=== PATIENT | female | born 1985 | race African-American/Black ===

== ENCOUNTER 2021-09-07 14:25 | Outpatient (CLI) | payer OTHER, SELFPAY ==
--- NOTE | 2021-09-07 | ECHO_ITS ---
Patient Info Name: Kavon Mauricio Age: 36 years : 1985 Gender: Female Ht: 65 in Wt: 300 lbs BSA: 2.58 m2 HR: 83 bpm BP: 161 / 108 mmHg Heart Rhythm: Sinus Rhythm Exam Date: 09/07/2021 2:58 PM Exam Location: [facility] Patient Status: Outpatient Admit Date: 09/07/2021 Staff Ordering Physician: Ovidio, Corrie NEGRETE Apprentice Pattern Maker: Abel Ornelas RDCS, RT Attending Provider: Ovidio, Corrie NEGRETE Referring Physician: Ovidio CAPPS; Exam Type: CA echo doppler color flow Study Info Indications R06.00 - Dyspnea, unspecified Complete two-dimensional, color flow and Doppler transthoracic echocardiogram is performed. Summary 1. Complete two-dimensional, color flow and Doppler transthoracic echocardiogram is performed. 2. Technically difficult exam presumably because of patient obesity. 3. Grossly normal appearing left and right ventricular systolic function. 4. Trivial amount of tricuspid valve regurgitation. Left Ventricle Left ventricular chamber dimension is normal. Left ventricular systolic function is normal, estimated at 60-65%. The left ventricular diastolic function is normal. Right Ventricle Right ventricular chamber dimension is normal. Left Atria Left atrial chamber dimension is normal. Right Atria Right atrial chamber dimension is not well visualized. Aortic Valve The aortic valve is normal. Pulmonic Valve The pulmonic valve is not well visualized. Mitral Valve The mitral valve has normal leaflets. Tricuspid Valve The tricuspid valve leaflets are not well visualized. There is trace tricuspid valve regurgitation. Pericardium/Pleural The pericardium appears normal. Aorta The aortic root size at the sinus of Valsalva is not well visualized. Left Ventricular Outflow Tract Name Value Normal LVOT 2D LVOT Diameter 2.0 cm LVOT Doppler LVOT Peak Gradient 2 mmHg LVOT Mean Gradient 1 mmHg LVOT VTI 16 cm LVOT VTI/AV VTI Ratio 0.8 LVOT Stroke Volume 50 ml LVOT CO 4.1 l/min LVOT CI 1.6 l/min/m2 Mitral Valve Name Value Normal MV Doppler MV Decel Stutsman 312 cm/s2 MV PHT 73 ms MV Area (PHT) 3.0 cm2 4.0-5.0 MV Diastolic Function MV E Peak Velocity 79 cm/s MV A Peak Velocity 54 cm/s MV E/A 1.5 MV Decel Time 252 ms MV Annular TDI
== END 2021-09-07 14:26 | disposition home or self-care (01) ==
LOC: ANHCARD 14:30
PROVIDERS: Visit Provider Physician Assistant
DX: R06.09 Other forms of dyspnea (principal)
CPT/HCPCS: 93306

== ENCOUNTER 2021-10-09 11:23 | Outpatient (CLI) | payer OTHER, SELFPAY ==
--- NOTE | ~2021-10-09 | XR_ITS ---
EXAMINATION: XR chest 2V DATE: 10/09/2021 11:43 INDICATION: Chronic cough TECHNIQUE: PA and lateral views of the chest were obtained. COMPARISON: None FINDINGS: The lungs are clear with no focal airspace opacities, pulmonary edema, pleural effusion or pneumothor ax. The cardiomediastinal silhouette is normal. Chronic appearing mild anterior wedging of a midthora cic and lower thoracic vertebral bodies. IMPRESSION: 1. No acute cardiopulmonary disease. Reviewed, dictated and finalized at location B. 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
== END 2021-10-09 11:24 | disposition home or self-care (01) ==
LOC: ANHIMG 11:26
PROVIDERS: PCP Physician Assistant; Visit Provider Physician Assistant
DX: R05.3 Chronic cough (principal)
CPT/HCPCS: 71046

== ENCOUNTER 2023-03-14 15:16 | Outpatient (CLI) | payer OTHER, SELFPAY ==
--- NOTE | ~2023-03-14 | US_ITS ---
EXAMINATION: US pelvic complete DATE: 03/14/2023 17:08 INDICATION: Irregular cycles Comparison:No prior studies for comparison. TECHNIQUE: Multiple transabdominal sonographic images of the pelvis performed. FINDINGS: The uterus measures 11.2 x 6.1 x 4.4 cm. The endometrial complex measures 2.4 mm. The right ovary is not visualized. Left ovary is unremarkable measuring 2.9 x 2.1 x 1.6 cm. There is no free fluid in the pelvis. There are no abnormal masses seen on either side. IMPRESSION: 1. Unremarkable pelvic ultrasound. Reviewed, dictated and finalized at location L.
== END 2023-03-14 15:17 | disposition home or self-care (01) ==
PROVIDERS: Visit Provider Family Medicine
DX: N92.6 Irregular menstruation, unspecified (principal)
CPT/HCPCS: 76856

== ENCOUNTER 2023-06-29 10:41 | Emergency (ER) | payer OTHER, SELFPAY ==
[2023-06-29] VITALS (11 sets, daily range): BP systolic 120–151; BP diastolic 58–82; PULSE 68–86; RESP 16–30; TEMP 36.8; O2SAT 96–100
--- NOTE | ~2023-06-29 | CT_ITS ---
EXAMINATION: CT abdomen pelvis w con DATE: 06/29/2023 13:20 INDICATION: Right-sided abdominal pain TECHNIQUE: Computed tomography (CT) of the abdomen and pelvis was performed with 100 cc Omnipaque 350 intravenous contrast. The dose-length product was 1517.71 mGy-cm. Automated exposure control and ite rative reconstruction technique were employed. COMPARISON: None. FINDINGS: Lung bases are unremarkable. No significant pleural or pericardial effusion. Heart size nor mal. The spleen, pancreas, adrenal glands and kidneys are unremarkable. Gallbladder is present. Nonobstruc tive bowel gas pattern. Fatty infiltration of the liver. Small fat-containing umbilical hernia. Gallb ladder is present. No free air or free fluid. No significant vascular abnormality. No lymphadenopathy . No abnormal pelvic masses or fluid collections. Mild lumbar spondylosis. IMPRESSION: 1. No acute abdominal abnormality identified. Reviewed, dictated and finalized at location B.
[2023-06-29 11:11] LABS: Basophils Absolute Auto 0.1 K/mm3 (0.0-0.1); Basophils Percent Auto 0.3 % (0.2-1.2); Eosinophils Absolute Auto 0.2 K/mm3 (0-0.3); Eosinophils Percent Auto 1.3 % (0-4.4); Hematocrit 36.4 % (37.0-47.0); Hemoglobin 11.1 g/dL (12.0-15.0); Immature Granulocyte Absolute 0.06 K/mm3 (0.00-0.031); Immature Granulocyte Percent A 0.4 % (0-0.5); Lymphocytes Percent Auto 26.4 % (18.3-44.2); Mean Corpuscular HGB Conc 30.5 g/dl (32-36); Mean Corpuscular Hemoglobin 24.4 pg (26-34); Mean Platelet Volume 9.9 fl (7.4-10.4); Monocytes Absolute Auto 0.5 K/mm3 (0.1-0.6); Monocytes Percent Auto 3.7 % (2.6-8.5); Neutrophils Absolute Auto 10.1 K/mm3 (1.3-6.7); Neutrophils Percent Auto 67.9 % (45.5-73.1); Platelet Count Result 325 k/mm3 (150-375); Red Blood Count 4.55 M/mm3 (4.2-5.4); Red Cell Distribution Width 15.8 % (11.5-14.5); White Blood Count 14.8 K/mm3 (4.5-10.0)
[2023-06-29 11:19] LABS: Alanine Aminotransferase 26 U/L (6-35); Albumin Level 4.1 g/dL (3.5-5.1); Alkaline Phosphatase 93 U/L (38-126); Anion Gap 8 mmol/L (8-16); Aspartate Amino Transferase 28 U/L (14-36); Bilirubin,Total 0.3 mg/dL (0.2-1.3); Blood Urea Nitrogen 14 mg/dL (7-17); Calcium 8.9 mg/dL (8.4-10.2); Carbon Dioxide 25 mmol/L (22-30); Chloride 102 mmol/L (98-107); Estimated CRCL calculation 118 ml/min; Estimated Glomerular Filt Rate > 60; Glucose 120 mg/dL (65-110); Lipase 144 U/L (23-300); Potassium 3.8 mmol/L (3.4-5.0); Sodium 135 mmol/L (137-145)
[2023-06-29 11:25] LABS: Appearance Urine Cloudy (Clear); Bacteria Urine 2+ /hpf; Bilirubin Urine Negative (Negative); Blood Urine Negative (Negative); Color Urine Dark Yellow (Yellow); Glucose Urine UA Negative (Negative); Ketones Urine Negative (Negative); Leukocyte Esterase Ur Trace LEU/UL (Negative); Nitrate Urine Negative (Negative); Non Pathogenic Casts 0-2; Protein Urine Negative (Negative); Specific Grav Ur 1.019 (1.001-1.035); Squamous Epithelial Cell Urine Moderate /hpf (Few); Urobilinogen Urine 0.2 mg/dL (<2.0); pH Urine 6.5 (5.0-9.0)
[2023-06-29 11:29] LABS: Add Urine Microscopic? YES
[2023-06-29] MEDS: cefTRIAXone 2 GM/NS 100 ML 2 GM/100 ML BAG IVPB (12:16)
--- NOTE | 2023-06-29 12:20 | ED.ABDPAIN ---
HPI - Abdominal Pain General Chief Complaint: Abdominal Pain Stated Complaint: abd pain Time Seen by Provider: 06/29/23 10:58 History of Present Illness HPI narrative: Pt states that for past few months she has been having some R sided abdominal pain; no n/v/d, no ALIX or CP, no recent injuries, no dysuria, not worse after eating, but is worse with certain movements. It has worsened recently so she came in. Related Data Home Medications Medication Instructions Recorded Confirmed losartan 25 mg tablet mg 06/29/23 spironolactone 50 mg tablet mg 06/29/23 Allergies Allergy/AdvReac Type Severity Reaction Status Date / Time No Known Allergies Allergy Verified 06/29/23 11:50 Review of Systems Review of Systems: CONST: No fever. HEENT: No sore throat C/V: No chest pain RESP: No cough GI: Reports abdominal pain : No dysuria. M/S: No joint pain. SKIN: No rash. NEURO: [No headache or focal numbness or weakness] PSYCH: [No depression] Exam Narrative: EXAMINATION OF ORGAN SYSTEMS/BODY AREAS: Constitutional: Vital signs per nursing GENERAL:[No acute distress, non-toxic appearing.] HEAD: Normal with no signs of head trauma. EYES: EOMI, conjunctiva normal ENT: Hearing grossly intact LUNGS: Nonlabored breathing. HEART: [Regular rate and rhythm] ABD: [Soft], [minimally tender to palpation to RUQ] EXT: Normal range of motion SKIN: [No rashes or lesions.] NEURO: [Alert and oriented x 3. No gross focal sensory or strength deficits.] PSYCH: Normal affect Course Vital Signs Vital signs: Vital Signs Temperature 98.3 F 06/29/23 10:52 Pulse Rate 84 06/29/23 10:52 Respiratory Rate 16 06/29/23 10:52 Blood Pressure 151/79 H 06/29/23 10:52 Pulse Oximetry 96 06/29/23 10:52 Oxygen Delivery Room Air 06/29/23 10:52 Temperature 98.3 F 06/29/23 10:52 Pulse Rate 78 06/29/23 14:30 Respiratory Rate 16 06/29/23 14:30 Blood Pressure 132/71 06/29/23 14:30 Pulse Oximetry 99 06/29/23 14:30 Oxygen Delivery Room Air 06/29/23 10:52 MDM - Abdominal Pain MDM Narrative Medical decision making narrative: Electronic medical record was reviewed. Patient presented to the ED with complaint of [abdominal pain, acute on chronic]. Vitals [were within acceptable limits]. Physical exam revealed soft abdomen with some minimal tenderness to deep palpation right upper quad/flank. Based on the patient's history and physical exam, my differential includes but is not limited to [gastritis, gastroenteritis, MSK, cholecystitis, nephrolithiasis, UTI/pyelonephritis, appendicitis]. [IV access was established by nursing staff]. CBC, BMP, lipase, LFTs, bilirubin and alk phos were obtained. Labs were pertinent for UTI, leukocytosis. [Decision was made to obtain a CT-abdomen to evaluate for acute abdominal process. Per radiology interpretation, is unremarkable for acute intra-abdominal process, no signs of hydronephrosis, cholecystitis, appendicitis.] I did give ceftriaxone and toradol. On reevaluation, the patient states that they are feeling much better. They are not complaining of any new abdominal pain. Repeat examination did not show any significant guarding or rebound. No new tenderness. At this time I do not feel there is any further emergent treatment to be provided. The patient was given strict return precautions, if they are to develop any worsening abdominal pain, vomiting, or blood in the vomit they are to return to the emergency department immediately. Patient verbally acknowledges understanding these directions. [The patient was informed of the above diagnostic test findings.] No further workup is necessary at this time. They will be discharged home [with keflex for UTI]. They were advised to follow-up with [their PCP] in 2 days. The patient feels that this is appropriate medical decision making and verbalizes an understanding of the discharge instructions. Lab Data 06/29/23 11:00
[2023-06-29] MEDS: KETOROLAC 15 MG/ML VIAL (*BKC) IV PUSH (14:10)
== END 2023-06-29 14:30 | disposition home or self-care (01) ==
PROVIDERS: Emergency Medicine; Emergency Provider Emergency Medicine; PCP Family Medicine
DX: N39.0 Urinary tract infection, site not specified (principal); R10.9 Unspecified abdominal pain
CPT/HCPCS: 36415; 74177; 80053; 81001; 81025; 83690; 85025; 87086; 87088; 96365; 96375; 99284; J0696; J1885; Q9967

== ENCOUNTER 2023-10-25 08:24 | Outpatient (CLI) | payer OTHER, SELFPAY ==
--- NOTE | ~2023-10-25 | MM_ITS ---
EXAMINATION: MM screening sarah BI w bree HISTORY: Baseline screening mammogram TECHNIQUE: Craniocaudal and mediolateral oblique 3-D tomosynthesis images were obtained and synthetic 2-D images were generated. CAD analysis was submitted and interpreted. COMPARISON: None, baseline BREAST PARENCHYMAL COMPOSITION: There are scattered areas of fibroglandular density. FINDINGS: No suspicious mass, calcification, or architectural distortion are identified in either joseph ast to suggest malignancy. IMPRESSION: 1. No mammographic evidence of malignancy. 2. Recommend routine screening mammography in one year. BI-RADS Category 1: Negative Reviewed, dictated and finalized at location A. 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
== END 2023-10-25 08:25 | disposition home or self-care (01) ==
PROVIDERS: PCP Family Medicine; Visit Provider Family Medicine
DX: Z12.31 Encounter for screening mammogram for malignant neoplasm of breast (principal)
CPT/HCPCS: 77063; 77067

== ENCOUNTER 2024-12-12 08:10 | Emergency (ER) | payer OTHER, SELFPAY ==
--- NOTE | ~2024-12-12 | CT_ITS ---
EXAMINATION: CT abdomen pelvis w con DATE: 12/12/2024 09:42 INDICATION: Right upper quadrant abdominal pain. TECHNIQUE: Computed tomography (CT) of the abdomen and pelvis was performed with 100 mL Omnipaque 350 intravenous contrast. Automated exposure control and iterative reconstruction technique were employe d. The dose-length product was 1038.11 mGy-cm. COMPARISON: CT abdomen and pelvis 06/29/2023 FINDINGS: The visualized portions of the lung bases demonstrate mild atelectasis. No pleural effusion . The heart size is normal. No pericardial effusion. There is a small sliding hiatal hernia. There ar e changes of gastric sleeve procedure. The liver, gallbladder, spleen, pancreas, adrenal glands, and kidneys are normal. There are no dilated loops of bowel. The appendix is normal. There are no patholo gically enlarged lymph nodes. There is no free intraperitoneal fluid. There is mild thoracic and lumb ar spondylosis. IMPRESSION: 1. Small sliding hiatal hernia with changes of gastric sleeve procedure. Reviewed, dictated and finalized at location B.
--- NOTE | ~2024-12-12 | US_ITS ---
EXAMINATION: US abdomen limited DATE: 12/12/2024 10:51 INDICATION: Right upper quadrant abdominal pain. TECHNIQUE: Multiple grayscale and Doppler ultrasound images of the abdomen were obtained. COMPARISON: CT abdomen and pelvis 12/12/2024 FINDINGS: The visualized portions of the head and body of the pancreas are normal. The liver is ubaldo l without focal lesion. There is normal flow in main portal vein. The gallbladder is normal in size a nd contains sludge. No gallstones or gallbladder wall thickening. There is no sonographic Ornelas's si gn. The common duct is normal and measures 3 mm. IMPRESSION: 1. No etiology for the patient's symptoms. Reviewed, dictated and finalized at location B.
[2024-12-12 08:16] VITALS: BP 163/90; PULSE 91; RESP 16; TEMP 36.8; O2SAT 98
--- OUTSIDE RECORDS SUMMARY | 2024-12-12 08:18 | XMS_ITS | Referral Summary ---
Author Organization [facility] Address [address] [place] [address] Care Team Providers Care Manager Business Development Hospice Name Role Phone Jade Damico MD Primary Care Provider [phone] Encounters Date Type Department Care Team Description 11/13/2024 11:29 AM MANAGER LOAN - 11/13/2024 11:59 PM MANAGER LOAN Hospital Encounter [address] [address] Sore throat Discharge Disposition: Discharge to home or self care 11/13/2024 10:30 AM MANAGER LOAN Office Visit [facility] at [address] [address] Adrienne Craven NP Sore throat (Primary Dx) from Last 3 Months Allergies No known active allergies Medications ergocalciferol (VITAMIN D) 50,000 unit capsule Take 1 capsule (50,000 Units total) by mouth 03/04/2023 Active losartan (COZAAR) 25 mg tablet Take 1 tablet (25 mg total) by mouth daily 03/04/2023 Active [id number] -Lmfolate-algal 27 mg iron-1.13 mg-581.92 mg capsule Take by mouth Active famotidine (PEPCID) 20 mg tablet Take 1 tablet (20 mg total) by mouth 2 (two) times a day for 10 days 20 tablet 01/31/2024 Active lidocaine viscous (XYLOCAINE) 2 % solutionIndicat ions:Sore throat Apply 10 mL to the mouth or throat every 6 (six) hours as needed (sore throat) May mix with 30 ml of Mylanta 100 mL 11/13/2024 Active Active Problems Problem Noted Date Diagnosed Date 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 She was getting ready to switch back to days. She was going to really work on better choices with eating and even restart her diet and begin with clear liquids again. We have also brought up adding an exercise regimen. We have also discussed doing things like avoiding eating late at night. She still attends the monthly support groups and I brought up with her in the chance doing a biggest weight loss contents for the months of August and September as these holiday seasons are always difficult with meals. This can help hold everyone accountable and help jump start her back to getting on the right path. We have also brought up to her getting a follow up with the dietitian which she has not done a little bit. We will see her back in 6 months. Assessment & Plan (01/31/2024 8:57 AM CDT): Continue to encourage protein supplements. We have encouraged her to continue working with an exercise regimen as well. Keep follow-up appointments with the dietitian. We will see her back in 6 months. She will call us sooner if anything changes Sleep apnea in adult 10/27/2023 Morbid obesity 07/28/2023 Heartburn 06/29/2023 Body mass index 50.0-59.9, adult 03/31/2023 Assessment & Plan (12/01/2023 11:08 AM MANAGER LOAN): Continue to advance diet as laid out in post bariatric handout. We have discussed that sometimes taste buds as well as just irritation from stapling of the stomach causes some increased nausea in the short term. We have discussed hot or cold may sit better and that she may have to try a couple different protein shakes to find 1 that is more appealing. Avoid heavy lifting for another few weeks. If she feels like she has not getting in enough fluids and is getting dehydrated she can let us know and we will send her into the infusion center for some IV resuscitation. If everything continues to improve we will see her back next month. She will call us sooner if anything changes. Assessment & Plan (05/26/2023 10:08 AM CDT): We have stressed the importance of small frequent losses along the way. She is going to see the dietitian next week to hopefully help her along the way. We have encouraged her to try and increase her exercise regimen. We will see her back next month to reassess her progress Assessment & Plan (04/28/2023 9:16 AM CDT): The patient is going to take what she is done this 1st month and add to it in her success at weight loss going forward. She will either try and increasing her activity or adjusting some things from a dietary intake standpoint this month. We will continue to encourage her to attend the support group meetings. We will see her back next month. Assessment & Plan (03/31/2023 8:48 AM CDT): Given their past success the patient would be a good candidate for weight loss surgery. We have gone over options such as the bypass and sleeve gastrectomy. We have also discussed risks and benefits such as blood clots, staple line leak as well as new or worsening reflux symptoms. They are in understanding. During this time will have them seen by the dietitian and psych. As we get closer to the time of surgery we will set him up for an EGD to look for hiatal hernia, H pylori or other gastric pathology. We will see them back in 4 weeks. They are in understanding of the plan. We have gone over small frequent meals shooting for a goal calorie intake of around 1600 spread throughout 4-5 meals. We have discussed not eating late at night. We have discussed cardiovascular exercise. Greater than 15 minutes was spent in counseling the patient on diet and exercise with regards to her morbid obesity. Resolved Problems Problem Noted Date Diagnosed Date Resolved Date H. pylori infection 07/28/2023 09/29/20 23 Social History Tobacco Use Types Packs/Day Years Used Date Smoking Tobacco: Never Smokeless Tobacco: Never Tobacco Cessation:Counseling Given: Not Answered AUDIT-C Answer Date Recorded Q1: How often do you have a drink containing alc ohol? Never 07/31/2024 Average Number of Drinks Not on file 024 Frequency of Binge Drinking Not on file 07/04 PHQ-2 Answer Date Recorded PHQ-2 Total Score (If total score is 3 or more points, staff should administer the PHQ-9) 0 11/23/2023 Personal Safety Answer Date Recorded Have you ever been in or are you currently in a harmful physical or emotional relationship or is someone making you feel afraid or unsafe? Denies 11/23/2023 Comments No Sex and Gender Information Value Date Recorded Sex Assigned at Not on file Legal Sex Female 7:57 AM MANAGER LOAN Gender Identity Not on file Sexual Orientation Not on file Last Filed Vital Signs Vital Sign Reading Time Taken Comments Blood Pressure 151/90 11/13/2024 10:49 AM MANAGER LOAN Pulse 87 11/13/2024 10:49 AM MANAGER LOAN Temperature 36.8 C (98.3 F) 11/13/2024 10:49 AM MANAGER LOAN Respiratory Rate 18 11/13/2024 10:4 9 AM MANAGER LOAN Oxygen Saturation 96% 11/13/2024 10: 49 AM MANAGER LOAN Inhaled Oxygen Concentration - - Weight 116.1 kg (255 lb 14.4 oz) 2024 10:49 AM MANAGER LOAN Height 167.6 cm (5' 5.98 ) 11/13/2024 1 0:49 AM MANAGER LOAN Body Mass Index 41.32 11/13/2024 10:49 AM MANAGER LOAN Plan of Treatment Not on file Procedures Procedure Name Priority Date/Time Associated Diagnosis Comments THROAT CULTURE Routine 11/13/2024 11:29 AM MANAGER LOAN Sore throat INFLUENZA A/B, RSV, AND COVID-19 PCR Routine 11/13/2024 11:29 AM MANAGER LOAN Sore throat POCT RAPID STREP Routine 11/13/2024 11:0 2 AM MANAGER LOAN Sore throat POC INFLUENZA A/B, COVID-19 ANTIGEN Routine 11/13/2024 10:51 AM MANAGER LOAN Sore throat from Last 3 Months Results * Influenza A/B, RSV, and COVID-19 PCR Nasopharyngeal (11/13/2024 11:29 AM MANAGER LOAN) COVID-19 RNA Negative Negative Influenza A RNA Negative Negative [facility] Influenza B RNA Negative Negative [facility] RSV RNA Negative Negative [facility] Comment: Interpretive data: Testing performed by [facility]. This test is performed using the [employer] Xpert Xpress CoV-2/Flu/RSV plus assay. This is a multiplex, real-time reverse transcriptase PCR assay intended for the qualitative detection of nucleic acid from SARS-CoV-2, influenza A, influenza B, and respiratory syncytial virus. This assay has been cleared by the [place] Food and Drug administration. The performance characteristics have been verified by the [facility]. Results must be considered in the clinical context, and a negative result does not rule out infection. Interpretive Data last revised 2023 Nasopharyngeal 11/13/2024 11 :29 AM MANAGER LOAN 11/13/2024 2:57 PM MANAGER LOAN Narrative [facility] - 11/13/2024 4:53 PM MANAGER LOAN Is the Patient experiencing symptoms consistent with COVID?->Yes Reason for testing?->Symptomatic Is the patient experiencing any symptoms consistent with COVID (eg. Fever, cough, shortness of breath)?->Yes Adrienne Craven NP LAB MICROBIOLOGY - GENERAL ORDERABLES Final Result [facility] [address] [facility] [place] [address] * Throat culture Throat (11/13/2024 11:29 AM MANAGER LOAN) Report Final Report: No growth of pathogens. Comment:Testing performed by : [facility], [address] [place]., [address] Throat 11/13/2024 11:2 9 AM MANAGER LOAN 11/13/2024 5:55 PM MANAGER LOAN Narrative [facility] - 11/14/2024 1:00 PM MANAGER LOAN Testing performed by [facility] Microbiology Laboratory ([phone]). Adrienne Craven NP LAB MICROBIOLOGY - GENERAL ORDERABLES Final Result [facility] [address] [address] Department [place] [address] * POCT rapid strep A (11/13/2024 11:02 AM MANAGER LOAN) Rapid Strep A, POC Negative Negative Swab 11/13/2024 11:0 2 AM MANAGER LOAN Adrienne Craven NP POINT OF CARE TEST ORDERAB LES Final Result * POC Influenza A/B, COVID-19 antigen (11/13/2024 10:51 AM MANAGER LOAN) Influenza A Ag, POC Negative Negative [facility] Influenza B Ag, POC Negative Negative [facility] COVID-19 Ag POC Presumptive Negative Presumptive Negative, Invalid [facility] Nasal 11/13/2024 10:5 1 AM MANAGER LOAN Adrienne Craven SERVICE [employer]OP FOREMAN POINT OF CARE TEST ORDERAB LES Final Result Performing Organization Address City/[facility] Co de Phone Number [facility] [place] [address], [facility] from Last 3 Months Insurance [facility] Advance Directives For more information, please contact: [phone] * Full Code (Latest Code Status on File) Date Activated Date Inactivated Comments 11/23/2023 12:38 PM 11/24/2023 5:17 PM * Full Code Date Activated Date Inactivated Comments 07/12/2023 11:58 AM 07/12/2023 6:36 PM * Full Code Date Activated Date Inactivated Comments 07/12/2023 11:58 AM 07/12/2023 11:58 AM Care Teams Manager Business Development Hospice Relationship Specialty Start Date End Date Jade Damico MD [address] [place] [address] PCP - General Obstetrics and Gynecology 03/31/23
--- OUTSIDE RECORDS SUMMARY | 2024-12-12 08:18 | XMS_ITS | Clinical Summary ---
Author Organization [facility] Address [facility] [place] [address] Care Team Providers Care Maintenance Coordinator Name Role Phone Jade Damico MD Primary Care Provider [phone] Allergies No known active allergies Medications ergocalciferol (VITAMIN D) 50,000 unit capsule Take 1 capsule (50,000 Units total) by mouth 03/04/2023 Active losartan (COZAAR) 25 mg tablet Take 1 tablet (25 mg total) by mouth daily 03/04/2023 Active [id number] -Lmfolate-algal 27 mg iron-1.13 mg-581.92 mg capsule [...] 03/31/2023 Assessment & Plan (12/01/2023 11:08 AM LEGISLATIVE ASSISTANT): Continue to advance diet as laid out [...] Date H. pylori infection 07/28/2023 09/29/20 23 Encounters Date Type Department Care Team Description 11/13/2024 11:29 AM LEGISLATIVE ASSISTANT - 11/13/2024 11:59 PM LEGISLATIVE ASSISTANT Hospital Encounter [address] [address] Sore throat Discharge Disposition: Discharge to home or self care 11/13/2024 10:30 AM LEGISLATIVE ASSISTANT Office Visit [facility] [address] [address] Adrienne Craven, SUJATA Sore throat (Primary Dx) from Last 3 Months Surgical History Surgery Date Site/Laterality Comments SLEEVE GASTROPLASTY 11/23/2023 Medical History Medical History Date Comments Hypertension H. pylori infection 07/28/2023 Family History Medical History Relation Name Comments Cancer Maternal Grandfather Lung Ca ncer Cancer Maternal Grandmother Cancer Mother Pancreatic canc er Breast cancer Mother's Sister Relation Name Status Comments Maternal Grandfather Maternal Grandmother Mother Mother's Sister Social History Tobacco Use Types Packs/Day Years [...] on file Legal Sex Female 7:57 AM LEGISLATIVE ASSISTANT Gender Identity Not on file Sexual Orientation Not on file Obstetrics History Last Filed Vital Signs Vital Sign Reading Time Taken Comments Blood Pressure 151/90 11/13/2024 10:49 AM LEGISLATIVE ASSISTANT Pulse 87 11/13/2024 10:49 AM LEGISLATIVE ASSISTANT Temperature 36.8 C (98.3 F) 11/13/2024 10:49 AM LEGISLATIVE ASSISTANT Respiratory Rate 18 11/13/2024 10:4 9 AM LEGISLATIVE ASSISTANT Oxygen Saturation 96% 11/13/2024 10: 49 AM LEGISLATIVE ASSISTANT Inhaled Oxygen Concentration - - Weight 116.1 kg (255 lb 14.4 oz) 2024 10:49 AM LEGISLATIVE ASSISTANT Height 167.6 cm (5' 5.98 ) 11/13/2024 1 0:49 AM LEGISLATIVE ASSISTANT Body Mass Index 41.32 11/13/2024 10:49 AM LEGISLATIVE ASSISTANT Plan of Treatment Health Maintenance Due Date Last Done Comments Breast Cancer Screening-Mammogram 1983 Cervical Cancer Screening 1983 Hepatitis C Screening 1983 Varicella Vaccines (1 of 2 - 13+ 2-dose series) 1996 Hepatitis B Screening 2001 Regular Well Visit/Exam 18-64 2001 DTaP/Tdap/Td Vaccine (2 - Td or Tdap) 08/27/2019 08/27/2009 Covid-19 Vaccine (4 - 2023-2 5 season) 2024 10/08/2021, 02/17/2021, 01/19/2021 Influenza Vaccine (#1) 2024 Depression Screening 10/14/2024 10/14/2023 HPV Vaccines Aged Out No longer eligi ble based on patient's age to complete this topic Pneumococcal vaccine <65 Aged Out No longer eligible based on patient's age to complete this topic Procedures Procedure Name Priority Date/Time Associated Diagnosis Comments THROAT CULTURE Routine 11/13/2024 11:29 AM LEGISLATIVE ASSISTANT Sore throat INFLUENZA A/B, RSV, AND COVID-19 PCR Routine 11/13/2024 11:29 AM LEGISLATIVE ASSISTANT Sore throat POCT RAPID STREP Routine 11/13/2024 11:0 2 AM LEGISLATIVE ASSISTANT Sore throat POC INFLUENZA A/B, COVID-19 ANTIGEN Routine 11/13/2024 10:51 AM LEGISLATIVE ASSISTANT Sore throat from Last 3 Months Results * Influenza A/B, RSV, and COVID-19 PCR Nasopharyngeal (11/13/2024 11:29 AM LEGISLATIVE ASSISTANT) Pathologist [facility] COVID-19 RNA Negative Negative [facility] Influenza A RNA Negative Negative [facility] Influenza B RNA Negative Negative [facility] RSV RNA Negative Negative [facility] Comment: Interpretive data: Testing performed by [facility]. This test is performed using the [employer] Xpert Xpress CoV-2/Flu/RSV plus assay. This is a multiplex, real-time reverse transcriptase PCR assay intended for the qualitative detection of nucleic acid from SARS-CoV-2, influenza A, influenza B, and respiratory syncytial virus. This assay has been cleared by the [place] Food and Drug administration. The performance characteristics have been verified by the [facility]. Results must be considered in the clinical context, and a negative result does not rule out infection. Interpretive Data last revised 2023 Nasopharyngeal 11/13/2024 11 :29 AM LEGISLATIVE ASSISTANT 11/13/2024 2:57 PM LEGISLATIVE ASSISTANT Narrative [facility] - 11/13/2024 4:53 PM LEGISLATIVE ASSISTANT Is the Patient experiencing symptoms consistent with COVID?->Yes Reason for testing?->Symptomatic Is the patient experiencing any symptoms consistent with COVID (eg. Fever, cough, shortness of breath)?->Yes Adrienne Craven NP LAB MICROBIOLOGY - GENERAL ORDERABLES Final Result Performing Organization Address [facility] Co de Phone Number MARJORIE DAILEY [address] Department [place] [address] [place] * Throat culture Throat (11/13/2024 11:29 AM LEGISLATIVE ASSISTANT) Report Final Report: No growth of pathogens. Comment:Testing performed by : [facility], [address] [place] [address] Throat 11/13/2024 11:2 9 AM LEGISLATIVE ASSISTANT 11/13/2024 5:55 PM LEGISLATIVE ASSISTANT Narrative [facility] 11/14/2024 1:00 PM LEGISLATIVE ASSISTANT Testing performed by [facility] ([phone]). Adrienne Craven NP LAB MICROBIOLOGY - GENERAL ORDERABLES Final Result Performing Organization Address [facility] Co de Phone Number MARJORIE DAILEY [address] Department [place] [address] * POCT rapid strep A (11/13/2024 11:02 AM LEGISLATIVE ASSISTANT) Rapid Strep A, POC Negative Negative Swab 11/13/2024 11:0 2 AM LEGISLATIVE ASSISTANT us Adrienne Craven NP POINT OF CARE TEST ORDERAB LES Final Result * POC Influenza A/B, COVID-19 antigen (11/13/2024 10:51 AM LEGISLATIVE ASSISTANT) Influenza A Ag, POC Negative Negative [facility] Influenza B Ag, POC Negative Negative [facility] COVID-19 Ag POC Presumptive Negative Presumptive Negative, Invalid [facility] Nasal 11/13/2024 10:5 1 AM LEGISLATIVE ASSISTANT Adrienne Craven FORESTRY PILOT POINT OF CARE TEST ORDERAB LES Final Result [facility] [address] [place] [address], [facility] from Last 3 Months Insurance [facility] Advance Directives For more information, please contact: [phone] * Full Code (Latest Code Status on File) Date Activated Date Inactivated Comments 11/23/2023 12:38 PM 11/24/2023 5:17 PM * Full Code Date Activated Date Inactivated Comments 07/12/2023 11:58 AM 07/12/2023 6:36 PM * Full Code Date Activated Date Inactivated Comments 07/12/2023 11:58 AM 07/12/2023 11:58 AM Care Teams Maintenance Coordinator Relationship Specialty Start Date End Date Jade Damico MD [address] [place] [address] PCP - General Obstetrics and Gynecology 03/31/23
--- OUTSIDE RECORDS SUMMARY | 2024-12-12 08:18 | XMS_ITS | Data Portability ---
Author Organization [facility], [place] Address [address] [place] [address] Assessment No assessment recorded. Plan of Treatment Reminders Order Date Submit Date Provider Last Modified By Organization Details Last Modified Time Details Appointments None record ed. Lab None record ed. Referral None record ed. Procedures None record ed. Surgeries None record ed. Imaging None record ed. Medication Orders None record ed. Patient TargetsNo targets recorded. Patient InstructionsNo instructions recorded. Reason for Referral None Reported. Results Created Date Observation Date Name Description Value Unit Range Abnormal Flag Note LastModifiedBy Organization Detail LastModifiedTime 06/29/20 21 06/29/2021 IMAGE GUIDE D PAP AND HPV REGAR DLESS image guided Pap, HPV regardless of Pap result SEE RESULT S BELOW CASE REPOR T: Cytol ogy Gynec ologi gilson Repor t Case: [id number] Autho rosalba anthony Provi kristan: Venita Gurrola CNM Colle cted: 06/29 1424 Order ing Locat ion: [place] [facility] Recei heath: 06/30 0151 First Scree n: Strut z, Willi am, CT Rescr een: Jose hicks, Carol, CT Speci men: Scree luma Pap - Image d, Cervi x STATE MENT OF ADEQU ACY: Satis facto ry for evalu ation Trans forma tion zone compo nent prese nt FINAL DIAGN OSIS: Negat gonzalez for Intra epith elial Lesio n or Marciano sanchez (NIL) Elect petar foy gema d by DeLmolly hicks, Carol, CT on 2020 at 12:02 PM ----- ----- ----- ----- ----- ----- ----- ----- ----- ----- ----- ----- ----- ----- ----- ----- ----- ---- HPV RESUL TS: HPV mRNA E6/E7 : No HPV mRNA Detec mariaelena NOTE: This high risk HPV mRNA assay detec ts fourt een high- risk HPV types (16, 18, 31, 33, 35, 39, 45, 51, 52, 56, 58, 59, 66, 68) witho ut diffe renti ation . COMME NT: Note: This speci men was revie wed by a Cytot echno logis t and/o r Patho logis t (as indic ated in this repor t) after evalu ation using the Thinp rep Imagi ng Syste m. CLINI GILSON INFOR MATIO N: Menst rual Statu s: LMP (if appli cable ): Clini gilson Histo ry/Pr eviou s Pap: Type of Neopl jeffery (if appli cable ): Signi fican t Clini gilson Findi ngs: Other Histo ry: Hormo genaro (if appli cable ): PAP EDUCA SUZETTE L NOTE: The Pap Test is a scree luma test with an inher ent false negat gonzalez rate. Liqui d-bas e sampl ing may decre ase, but will not elimi josue, false negat gonzalez resul ts. A negat gonzalez resul t does not precl ude the prese nce and/o r devel opmen t of disea se, since the prese nce of abnor mal cells in the sampl e depen ds on the locat ion of the lesio n and sampl ing techn ique. Lisa nued regul ar scree luma is the best metho d of cance r preve ntion . If repor mariaelena cytol ogic findi ng do not corre late with physi gilson and/o r histo rical findi ngs, fur er inves tigat ion is recom jannette d, as clini kevin jones nted. Not Available [facility] (Lab) [address], [place], [address], 07/03/2021 13:05:13 Result Notes None recorded. Problems Name Problem SNOMED Code Status Onset Date Resolution Date Notes Provider Name and Address Organization Details Recorded Time SNOMED CT Concept Completed 201806/24/2021 Encntr for broom builder exam (general) (routine) w/o abn findings;R ecorded Elsewhere: No Locatio n: [facility] rce: EHR Chroni c: N Practice ID: [id number] Billa ble Time: 10:30:[address] [facility] 15:21:41 Problem Notes None recorded. Procedures Surgical History Date Name Laterality Status Provider Name and Address Organization Details Recorded Time 04/17/2019 Date of Last Pap Smear completed Sylvia Beasley [facility] 06/24/2021 15:22:08 Imaging Results None recorded. Procedure Notes None recorded. Medical Equipment None Reported. Allergies No known drug allergies Medications Name Sig Start Date Stop Date Status Note LastModified by Organization Details LastModified Time Vitamin D2 1,250 mcg (50,000 unit) capsule take 1 capsule by oral route every week 06/24 completed Prescribe d Elsewhere : No Locati on: [facility] Mo dify By: dmrose En counter DateTime: 10:27:10 AM Not Available Not Available Not Available Vitals Date Recorded Body height Body mass index (BMI) Body weight Systolic blood pressure Diastolic blood pressure Provider Name and Address Organization Details Last Updated DateTime 06/29/2021 162.56 cm 52.4 kg/m2 092920.6 7 g 131 mm[Hg] 88 mm[Hg] Sylvia Beasley [facility] 14:12:37 Social History None recorded. Functional Status None recorded. Mental Status None recorded. Family History Relationship Description Onset Age of this Age Resolved Age Notes LastModified by Organization Details LastModified Time Mother Hypertensive disorder [email or web address] Not available 2020 15:23:34 Mother Malignant tumor of kidney [email or web address] Not available 2020 14:14:27 Maternal Aunt Malignant tumor of lung [email or web address] Not available 2020 14:14:05 Maternal Uncle Carcinoma of prostate [email or web address] Not available 2020 14:14:18 Medical History Condition Response Allergies (Food, seasonal, environmental ) N Other N Breast Cancer N Drug/Latex Allergies/Reactions N Blood Transfusion N Dermatologic Disorders N Lung Disease N Defects or Inherited Disease N Breast Problem N Gestational Diabetes N Hematologic disorders N Anesthesia Complications N History of STI N Deep Vein Thrombosis N Polycystic ovary syndrome N Anxiety Disorder N Autoimmune disease N Arthritis N Infertility N Polyps N Acid Reflux (GERD) N History of abnormal pap N Cancer N Stroke N Varicosities N Neurologic/Epilepsy N Endometriosis N High Cholesterol N Headaches N Fibromyalgia N Kidney Disease N Heart Problems N Kidney or Bladder Problems N Thyroid Problems N GI Problems N Eating Disorder N Anemia N Art (IVF or FET) N Psychiatric Illness N Ovarian Cancer N Diabetes N Pulmonary (TB, Asthma) N Hepatitis/Liver Disease N No Past Medical History N Eczema N Urinary Tract Infection N Abuse/Domestic Violence N Asthma N Trauma/Violence N Depression/ depression N Heart Disease N Pre-Eclampsia N Hypertension N Osteoporosis N Thrombophilias N Gynecological History Statement/Question Response Abnormal Pap N Date of Last Mammogram Date of LMP 05/19/2021 STIs/STDs N Current Control Method None Are cycles usually normal N Menses Monthly N Date of Last Pap Smear 04/17/2019 Sexual Problems? N Desired Control Method None LMP Approximate Obstetrics History GPAL:G 5 P 4 0 1 4 Type Value Full Term 4 Spontaneous 1 Living 4 Total 5 Past Encounters Encounter ID Performer Location Encounter Start Date Encounter Closed Date Diagnosis/Indication Diagnosis SNOMED-CT Code Diagnosis ICD10 Code Diagnosis Note [id number] Venita Vegashilpi [place] [address] [address] 06/29/2021 14:01:07 06/29/2021 14:46:23 Gynecologic examination 59206553 Z01.419 Z11.51 Take Calcium with Vitamin D 1200mg daily if not receiving in daily diet. It is strongly advised to have an annual flu shot and up can obtain at most pharmacies . If you have not had a TDap shot in the last 10 years you should obtain one as well. Pt has already had covid vaccine. Discussed with patient & provided with informatio n regarding Gardisil vaccine to prevent the 4 strains for HPV that cause cervical cancer if under age 26. Encourage safe sexual practices, to use condoms and limit partners if not already in a monogamous relationsh ip. Do monthly self breast exams. Have mammogram yearly or every other year depending on family history. BRCA testing is now available for patients with strong genetic history of female cancer. If interested contact the office. Pt is shiloh anthony but not decided yet. Engage in daily exercise of low impact aerobic exercise 45-60 minutes 4-5 times weekly. Avoid tobacco and illicit drugs as well as using moderation with alcohol intake less than 1-2 8 oz beverages daily. This lifestyle behavior pattern will lead to less health conditions and longer life span. If BMI greater than 25 weight watchers or dietary consult advised. Patient received above instructio ns, and questions have been answered. If you have any questions please call or respond to this email. Patient was made aware of the patient portal and may obtain a paper copy of today's plan if desired. Health Concerns Section Related Observation LastModified by Organization Detai ls LastModified Time None Recorded Concern Status LastModified by Organization Details LastModified Time None Recorded Advance Directives Directive None Recorded Payers Encounter Date Sequence Insurance Name Policy Number Policy Shafer Covered Member ID Shafer Member ID Guarantor Name 06/29/2021 1 *SELF PAY* Alexandria Mauricio Notes Date Note Type Note Provider Name and Address Organization Details Recorded Time 06/29/2021 text/html Annual GYNReport ed bypatient.Menstrua l cycle:Normal menses; Usually monthly but will occasionally skip a month. Urinary symptoms:No hematuria; No incontinence Vulva:No genital lesion Vagina:Normal vaginal discharge Breast:No breast pain; No breast lump; No nipple discharge Sexual complaints:No sexual complaints; No pain during intercourse; Normal libido Menopausal Symptoms:No menopausal symptoms; Normal vaginal lubrication Psychological symptoms:No depression; No anxiety; No PMDD Venita Toussaint [facility] 06/29/2021 14:34:02 OBGyn Episode Ob Episode Information Episode Created Date Number of Fetuses Patient Bloodtype Patient rh Status Prepregnancy Weight lbs Domestic Partner Domestic Partner Phone Father Name Account Resolution Specialist Status 06/24/20 21 1 CLOSED Fetus Data First Name Last Name Admitted to NICU Weight (g) Sex Living Outcome Pediatric Complications Fetus ID Race Codes Race Delivery Type M [id number] Vaginal Delivery Aaron Calculation Initial Aaron Date Initial Exam Date Initial Exam Provider Initial Ultrasound Date Last Menstrual Period Date Ultra Sound Weeks Gestation 0 Eighteen To Twenty Week Aaron Update Ultra Sound Date Fundal Height At Umbil Quickening Date Ultra Sound Latest Weeks Gestation Final Aaron Confirmed By Final Aaron Confirmed Date Final Aaron Date Ultra Sound Latest Days Gestation 0 0 Menstrual History Last Menstrual Date Menses Monthly On Bcp Conception Prior Menses Frequency Hcg Plus Date Menarche Onset Age Delivery Information Delivery Date Delivery Type Labor Anesthesia Weeks Gestation Incision Type Labor Labor Length Hrs Delivered By Post Complications Tubal Sterilization Discharge Date Comments 2 37 Discharge Information Feeding Method Contraceptive Method Maternal HG B and HCT Levels Ob Episode Information Episode Created Date Number of Fetuses Patient Bloodtype Patient rh Status Prepregnancy Weight lbs Domestic Partner Domestic Partner Phone Father Name Account Resolution Specialist Status 06/24/20 21 1 DELETED Aaron Calculation Initial Aaron Date Initial Exam Date Initial Exam Provider Initial Ultrasound Date Last Menstrual Period Date Ultra Sound Weeks Gestation 0 Eighteen To Twenty Week Aaron Update Ultra Sound Date Fundal Height At Umbil Quickening Date Ultra Sound Latest Weeks Gestation Final Aaron Confirmed By Final Aaron Confirmed Date Final Aaron Date Ultra Sound Latest Days Gestation 0 0 Menstrual History Last Menstrual Date Menses Monthly On Bcp Conception Prior Menses Frequency Hcg Plus Date Menarche Onset Age Delivery Information Delivery Date Delivery Type Labor Anesthesia Weeks Gestation Incision Type Labor Labor Length Hrs Delivered By Post Complications Tubal Sterilization Discharge Date Comments 4 Discharge Information Feeding Method Contraceptive Method Maternal HG B and HCT Levels Ob Episode Information Episode Created Date Number of Fetuses Patient Bloodtype Patient rh Status Prepregnancy Weight lbs Domestic Partner Domestic Partner Phone Father Name Account Resolution Specialist Status 06/24/20 21 1 CLOSED Fetus Data First Name Last Name Admitted to NICU Weight (g) Sex Living Outcome Pediatric Complications Fetus ID Race Codes Race Delivery Type M Full Term [id number] Vaginal Delivery Aaron Calculation Initial Aaron Date Initial Exam Date Initial Exam Provider Initial Ultrasound Date Last Menstrual Period Date Ultra Sound Weeks Gestation 0 Eighteen To Twenty Week Aaron Update Ultra Sound Date Fundal Height At Umbil Quickening Date Ultra Sound Latest Weeks Gestation Final Aaron Confirmed By Final Aaron Confirmed Date Final Aaron Date Ultra Sound Latest Days Gestation 0 0 Menstrual History Last Menstrual Date Menses Monthly On Bcp Conception Prior Menses Frequency Hcg Plus Date Menarche Onset Age Delivery Information Delivery Date Delivery Type Labor Anesthesia Weeks Gestation Incision Type Labor Labor Length Hrs Delivered By Post Complications Tubal Sterilization Discharge Date Comments 7 Discharge Information Feeding Method Contraceptive Method Maternal HG B and HCT Levels Ob Episode Information Episode Created Date Number of Fetuses Patient Bloodtype Patient rh Status Prepregnancy Weight lbs Domestic Partner Domestic Partner Phone Father Name Account Resolution Specialist Status 06/24/20 21 1 CLOSED Fetus Data First Name Last Name Admitted to NICU Weight (g) Sex Living Outcome Pediatric Complications Fetus ID Race Codes Race Delivery Type F Full Term [id number] Vaginal Delivery Aaron Calculation Initial Aaron Date Initial Exam Date Initial Exam Provider Initial Ultrasound Date Last Menstrual Period Date Ultra Sound Weeks Gestation 0 Eighteen To Twenty Week Aaron Update Ultra Sound Date Fundal Height At Umbil Quickening Date Ultra Sound Latest Weeks Gestation Final Aaron Confirmed By Final Aaron Confirmed Date Final Aaron Date Ultra Sound Latest Days Gestation 0 0 Menstrual History Last Menstrual Date Menses Monthly On Bcp Conception Prior Menses Frequency Hcg Plus Date Menarche Onset Age Delivery Information Delivery Date Delivery Type Labor Anesthesia Weeks Gestation Incision Type Labor Labor Length Hrs Delivered By Post Complications Tubal Sterilization Discharge Date Comments 5 40 Discharge Information Feeding Method Contraceptive Method Maternal HG B and HCT Levels Ob Episode Information Episode Created Date Number of Fetuses Patient Bloodtype Patient rh Status Prepregnancy Weight lbs Domestic Partner Domestic Partner Phone Father Name Account Resolution Specialist Status 06/24/20 21 1 CLOSED Fetus Data First Name Last Name Admitted to NICU Weight (g) Sex Living Outcome Pediatric Complications Fetus ID Race Codes Race Delivery Type M [id number] Vaginal Delivery Aaron Calculation Initial Aaron Date Initial Exam Date Initial Exam Provider Initial Ultrasound Date Last Menstrual Period Date Ultra Sound Weeks Gestation 0 Eighteen To Twenty Week Aaron Update Ultra Sound Date Fundal Height At Umbil Quickening Date Ultra Sound Latest Weeks Gestation Final Aaron Confirmed By Final Aaron Confirmed Date Final Aaron Date Ultra Sound Latest Days Gestation 0 0 Menstrual History Last Menstrual Date Menses Monthly On Bcp Conception Prior Menses Frequency Hcg Plus Date Menarche Onset Age Delivery Information Delivery Date Delivery Type Labor Anesthesia Weeks Gestation Incision Type Labor Labor Length Hrs Delivered By Post Complications Tubal Sterilization Discharge Date Comments 9 36 Discharge Information Feeding Method Contraceptive Method Maternal HG B and HCT Levels Ob Episode Information Episode Created Date Number of Fetuses Patient Bloodtype Patient rh Status Prepregnancy Weight lbs Domestic Partner Domestic Partner Phone Father Name Account Resolution Specialist Status 06/24/20 21 1 CLOSED Fetus Data First Name Last Name Admitted to NICU Weight (g) Sex Living Outcome Pediatric Complications Fetus ID Race Codes Race Delivery Type , Spontane ous [id number] Aaron Calculation Initial Aaron Date Initial Exam Date Initial Exam Provider Initial Ultrasound Date Last Menstrual Period Date Ultra Sound Weeks Gestation 0 Eighteen To Twenty Week Aaron Update Ultra Sound Date Fundal Height At Umbil Quickening Date Ultra Sound Latest Weeks Gestation Final Aaron Confirmed By Final Aaron Confirmed Date Final Aaron Date Ultra Sound Latest Days Gestation 0 0 Menstrual History Last Menstrual Date Menses Monthly On Bcp Conception Prior Menses Frequency Hcg Plus Date Menarche Onset Age Delivery Information Delivery Date Delivery Type Labor Anesthesia Weeks Gestation Incision Type Labor Labor Length Hrs Delivered By Post Complications Tubal Sterilization Discharge Date Comments 4 Discharge Information Feeding Method Contraceptive Method Maternal HG B and HCT Levels
--- OUTSIDE RECORDS SUMMARY | 2024-12-12 08:18 | XMS_ITS | Data Portability ---
Author Organization [employer] [facility], Jorge Lee [facility] Address [address] [place] [address] Care Team Providers Care Statistical Consultant Name Role Phone THUY GOMEZ Primary Care Provider Assessment No assessment recorded. Plan of Treatment Reminders Order Date Submit Date Provider Last Modified By Organization Details Last Modified Time Details Appointments None record ed. Lab None record ed. Referral None record ed. Procedures None record ed. Surgeries None record ed. Imaging None record ed. Medication Orders None record ed. Patient TargetsNo targets recorded. Patient Instructions Encounter Date Encounter Id Patient Instructions Last Modified By Organization Details Last Modified Time 03/24/2018 [id number] toenail fungus: care instructions [email or web address] Not available 03/24/2018 12:16:39 I explained to t he patient the diagnosis, prognosis, etiology and treatment options for onychomycosis including no treatment, oral and topical medications, Cutera laser therapy, periodic debridement, phenol matrixectomy for permanent nail removal, and temporary nail avulsion followed by use of topical antifungal medication. [email or web address] Not available 03/24/2018 12:15:57 Reason for Referral None Reported. Results Created Date Observation Date Name Description Value Unit Range Abnormal Flag Note LastModifiedBy Organization Detail LastModifiedTime Result Notes None recorded. Procedures Surgical History Date Name Laterality Status Provider Name and Address Organization Details Recorded Time 03/24/2018 [id number] Nail unit biosy SK completed Lennox Plunkett DPM [address] [place] [address], [id number], [facility] [employer] [facility] 03/24/2018 12:15:29 Imaging Results None recorded. Procedure Notes None recorded. Medical Equipment None Reported. Allergies No known drug allergies Medications Not known to be on any medication Vitals Date Recorded Body height Body mass index (BMI) Body weight Provider Name and Address Organization Details Last Updated DateTime 03/24/2018 165.1 cm 46.6 kg/m2 003318.86 g Lilly Voss [facility] 03/24/2018 11:57:48 Social History Question Answer Notes LastModified by Organizat ion Details LastModified Time Tobacco Smoking Status Never Smoker Lilly coon, [facility] 03/24/2018 11:58:12 What Is Your Level Of Alcohol Consumption? Occasional Information not available 03/24/2018 Size Of Shoes 10 Information not available 03/24/2018 What Was The Date Of Your Most Recent Tobacco Screening? 03/24/2018 Information n ot available 04/25/2019 Sex: Unknown Functional Status Question Answer Note LastModified by Organization D etails LastModified Time What is your exercise level? None Information not available 03/24/2018 Mental Status None recorded. Family History Relationship Description Onset Age of this Age Resolved Age Notes LastModified by Organization Details LastModified Time Father No current problems or disability Not available 03/24 11:58:06 Mother No current problems or disability Not available 03/24 11:58:06 Medical History Condition Response Tuberculosis or TB N Heart Problems N Ulcers on Legs or Feet N Coronary Artery Disease N HIV or AIDS N Seizure Disorder N Gout N High Blood Pressure N Clot in Lung or Pulmonary Embolism N Menopause N Lung Condition N Phlebitis or Venous Blood Clot N Migraines Y Depression N Pacemaker N Anemia N Back Pain N Neurologic Disease N Sciatica N Heart Attack (AR) N Diabetes N Urinary Tract Infections N Anxiety Disorder N Bleeding Disorder N Arthritis N Abuse of Alcohol or Drugs N Back injury N Ear Problems N Cancer N Dementia N Eye Problems N Stroke N Stomach Problems N Peripheral Vascular Disease N Sinus Conditions N Broken Bone N Thyroid Disorder N High Cholesterol N Hepatitis N Liver Disease N Heart Disease N Rheumatoid Arthritis N Rash N Osteoporosis N Kidney Disease N Gynecological HistoryNo gynecological history recorded. Obstetrics History GPAL:G 0 P 0 0 0 0 Past Encounters Encounter ID Performer Location Encounter Start Date Encounter Closed Date Diagnosis/Indication Diagnosis SNOMED-CT Code Diagnosis ICD10 Code Diagnosis Note [id number] MACIEJ [address] [place] [address] 03/24/2018 11:44:56 03/24/2018 12:11:07 Onychomycosis [id number] B35.1 Dystrophia unguium 12947 009 L60.3 Health Concerns Section Related Observation LastModified by Organization Detai ls LastModified Time None Recorded Concern Status LastModified by Organization Details LastModified Time None Recorded Advance Directives Directive None Recorded Payers Encounter Date Sequence Insurance Name Policy Number Policy Shafer Covered Member ID Shafer Member ID Guarantor Name 03/24/2018 1 [facility] Kavon Mauricio [id number] Kavon Mauricio Notes Date Note Type Note Provider Name and Address Organization Details Recorded Time 03/24/2018 text/html Dry Skin / FungusReported bypatient.Location:l eft; L1 Quality:painless Severity:severe Duration:weeks Onset/Timing:after geting pedi STarted after a pedicure Lennox Plunkett DPM [address] [place], [address], [facility] [employer] [facility] 03/24/2018 12:16:42 OBGyn Episode No OBEpisode recorded.
[2024-12-12 08:21] VITALS: BP 140/61; PULSE 79; RESP 18; TEMP 36.8; O2SAT 98
[2024-12-12 08:49] VITALS: BP 129/78; PULSE 74; RESP 18; O2SAT 98
[2024-12-12 08:52] LABS: BEDSIDEPREGUCG Negative (Negative)
[2024-12-12 09:05] LABS: Alanine Aminotransferase 17 U/L (6-35); Alkaline Phosphatase 82 U/L (38-126); Anion Gap 8 mmol/L (4-12); Aspartate Amino Transferase 19 U/L (14-36); Bilirubin,Total 0.3 mg/dL (0.2-1.3); Blood Urea Nitrogen 15 mg/dL (7-17); Calcium 8.7 mg/dL (8.4-10.2); Carbon Dioxide 27 mmol/L (22-30); Chloride 105 mmol/L (98-107); Estimated CRCL calculation 93 ml/min; Estimated Glomerular Filt Rate > 60; Glucose 95 mg/dL (65-110); Lipase 160 U/L (23-300); Sodium 140 mmol/L (137-145)
[2024-12-12 09:15] LABS: Basophils Percent Auto 0.4 % (0.2-1.2); Eosinophils Absolute Auto 0.2 K/mm3 (0-0.3); Eosinophils Percent Auto 1.8 % (0-4.4); Hematocrit 36.4 % (37.0-47.0); Hemoglobin 11.5 g/dL (12.0-15.0); Immature Granulocyte Absolute 0.04 K/mm3 (0.00-0.031); Immature Granulocyte Percent A 0.4 % (0-0.5); Lymphocytes Absolute Auto 3.77 K/mm3 (0.9-3.2); Lymphocytes Percent Auto 33.6 % (18.3-44.2); Mean Corpuscular HGB Conc 31.6 g/dl (32-36); Mean Corpuscular Hemoglobin 26.7 pg (26-34); Mean Corpuscular Volume 84.7 fl (80-100); Mean Platelet Volume 9.7 fl (7.4-10.4); Monocytes Absolute Auto 0.5 K/mm3 (0.1-0.6); Monocytes Percent Auto 4.5 % (2.6-8.5); Neutrophils Absolute Auto 6.7 K/mm3 (1.3-6.7); Neutrophils Percent Auto 59.3 % (45.5-73.1); Platelet Count Result 333 k/mm3 (150-375); White Blood Count 11.2 K/mm3 (4.5-10.0)
[2024-12-12 09:28] LABS: Add Urine Microscopic? YES; Appearance Urine Cloudy (Clear); Bacteria Urine 1+ /hpf; Bilirubin Urine Negative (Negative); Blood Urine Negative (Negative); Color Urine Yellow (Yellow); Glucose Urine UA Negative (Negative); Ketones Urine Negative (Negative); Leukocyte Esterase Ur 1+ LEU/UL (Negative); Need Manual Microscopic Reviewed; Nitrate Urine Negative (Negative); Non Pathogenic Casts 0-2; Protein Urine Negative (Negative); Specific Grav Ur 1.023 (1.001-1.035); Squamous Epithelial Cell Urine Moderate /hpf (Few); Urobilinogen Urine 0.2 mg/dL (<2.0); WBC Urine 0-5 /hpf (0-3)
[2024-12-12] MEDS: ONDANSETRON INJ 4 MG/2 ML VIAL IV PUSH (09:32)
[2024-12-12] MEDS: MORPHINE SULFATE (*CRX) 2 MG/ML INJ IV PUSH (09:32)
--- OUTSIDE RECORDS SUMMARY | 2024-12-12 09:38 | XMS_ITS | Referral Summary ---
Author Organization [facility] Address [address] [place] [address] Care Team Providers Care Help Desk Operator Name Role Phone Jade Damico MD Primary Care Provider [phone] Encounters Date Type Department Care Team Description 11/13/2024 11:29 AM MENTAL HEALTH TECHNICIAN - 11/13/2024 11:59 PM MENTAL HEALTH TECHNICIAN Hospital Encounter [address] [address] Sore throat Discharge Disposition: Discharge to home or self care 11/13/2024 10:30 AM MENTAL HEALTH TECHNICIAN Office Visit [facility] at [address] [address] Adrienne Craven NP Sore throat (Primary Dx) from Last 3 Months Allergies No known active allergies Medications ergocalciferol (VITAMIN D) 50,000 unit capsule Take 1 capsule (50,000 Units total) by mouth 03/04/2023 Active losartan (COZAAR) 25 mg tablet Take 1 tablet (25 mg total) by mouth daily 03/04/2023 Active [id number] -Lmfolate-algal 27 mg iron-1.13 mg-581.92 mg capsule [...] 03/31/2023 Assessment & Plan (12/01/2023 11:08 AM MENTAL HEALTH TECHNICIAN): Continue to advance diet as laid out [...] on file Legal Sex Female 7:57 AM MENTAL HEALTH TECHNICIAN Gender Identity Not on file Sexual Orientation Not on file Last Filed Vital Signs Vital Sign Reading Time Taken Comments Blood Pressure 151/90 11/13/2024 10:49 AM MENTAL HEALTH TECHNICIAN Pulse 87 11/13/2024 10:49 AM MENTAL HEALTH TECHNICIAN Temperature 36.8 C (98.3 F) 11/13/2024 10:49 AM MENTAL HEALTH TECHNICIAN Respiratory Rate 18 11/13/2024 10:4 9 AM MENTAL HEALTH TECHNICIAN Oxygen Saturation 96% 11/13/2024 10: 49 AM MENTAL HEALTH TECHNICIAN Inhaled Oxygen Concentration - - Weight 116.1 kg (255 lb 14.4 oz) 2024 10:49 AM MENTAL HEALTH TECHNICIAN Height 167.6 cm (5' 5.98 ) 11/13/2024 1 0:49 AM MENTAL HEALTH TECHNICIAN Body Mass Index 41.32 11/13/2024 10:49 AM MENTAL HEALTH TECHNICIAN Plan of Treatment Not on file Procedures Procedure Name Priority Date/Time Associated Diagnosis Comments THROAT CULTURE Routine 11/13/2024 11:29 AM MENTAL HEALTH TECHNICIAN Sore throat INFLUENZA A/B, RSV, AND COVID-19 PCR Routine 11/13/2024 11:29 AM MENTAL HEALTH TECHNICIAN Sore throat POCT RAPID STREP Routine 11/13/2024 11:0 2 AM MENTAL HEALTH TECHNICIAN Sore throat POC INFLUENZA A/B, COVID-19 ANTIGEN Routine 11/13/2024 10:51 AM MENTAL HEALTH TECHNICIAN Sore throat from Last 3 Months Results * Influenza A/B, RSV, and COVID-19 PCR Nasopharyngeal (11/13/2024 11:29 AM MENTAL HEALTH TECHNICIAN) COVID-19 RNA Negative Negative Influenza A RNA Negative Negative [facility] Influenza B RNA Negative Negative [facility] RSV RNA Negative Negative [facility] Comment: Interpretive data: Testing performed by [facility]. This test is performed using the [employer] Xpert Xpress CoV-2/Flu/RSV plus assay. This is a multiplex, real-time reverse transcriptase PCR assay intended for the qualitative detection of nucleic acid from SARS-CoV-2, influenza A, influenza B, and respiratory syncytial virus. This assay has been cleared by the [place] Food and Drug administration. The performance characteristics have been verified by the [facility]. Results must be considered in the clinical context, and a negative result does not rule out infection. Interpretive Data last revised 2023 Nasopharyngeal 11/13/2024 11 :29 AM MENTAL HEALTH TECHNICIAN 11/13/2024 2:57 PM MENTAL HEALTH TECHNICIAN Narrative [facility] - 11/13/2024 4:53 PM MENTAL HEALTH TECHNICIAN Is the Patient experiencing symptoms consistent with COVID?->Yes Reason for testing?->Symptomatic Is the patient experiencing any symptoms consistent with COVID (eg. Fever, cough, shortness of breath)?->Yes Adrienne Craven NP LAB MICROBIOLOGY - GENERAL ORDERABLES Final Result MARJORIE [address] [facility] Department [place] [address] * Throat culture Throat (11/13/2024 11:29 AM MENTAL HEALTH TECHNICIAN) Report Final Report: No growth of pathogens. Comment:Testing performed by : [facility], [address] [place]., [address] Throat 11/13/2024 11:2 9 AM MENTAL HEALTH TECHNICIAN 11/13/2024 5:55 PM MENTAL HEALTH TECHNICIAN Narrative [facility] - 11/14/2024 1:00 PM MENTAL HEALTH TECHNICIAN Testing performed by [facility] ([phone]). Adrienne Craven NP LAB MICROBIOLOGY - GENERAL ORDERABLES Final Result MARJORIE [address] Department [place] [address] * POCT rapid strep A (11/13/2024 11:02 AM MENTAL HEALTH TECHNICIAN) Rapid Strep A, POC Negative Negative Swab 11/13/2024 11:0 2 AM MENTAL HEALTH TECHNICIAN Adrienne Craven NP POINT OF CARE TEST ORDERAB LES Final Result * POC Influenza A/B, COVID-19 antigen (11/13/2024 10:51 AM MENTAL HEALTH TECHNICIAN) Influenza A Ag, POC Negative Negative [facility] Influenza B Ag, POC Negative Negative [facility] COVID-19 Ag POC Presumptive Negative Presumptive Negative, Invalid [facility] Nasal 11/13/2024 10:5 1 AM MENTAL HEALTH TECHNICIAN Adrienne Craven [employer] POINT OF CARE TEST ORDERAB LES Final Result Performing Organization Address City/[facility] Co de Phone Number [facility] [place] [address], [facility] from Last 3 Months Insurance [facility] Advance Directives For more information, please contact: [phone] * Full Code (Latest Code Status on File) Date Activated Date Inactivated Comments 11/23/2023 12:38 PM 11/24/2023 5:17 PM * Full Code Date Activated Date Inactivated Comments 07/12/2023 11:58 AM 07/12/2023 6:36 PM * Full Code Date Activated Date Inactivated Comments 07/12/2023 11:58 AM 07/12/2023 11:58 AM Care Teams Help Desk Operator Relationship Specialty Start Date End Date Jade Damico MD [address] [place] [address] PCP - General Obstetrics and Gynecology 03/31/23
--- OUTSIDE RECORDS SUMMARY | 2024-12-12 09:38 | XMS_ITS | Clinical Summary ---
Author Organization [facility] Address [facility] [place] [address] Care Team Providers Care Ramp Agent Name Role Phone Jade Damico MD Primary Care Provider [phone] Allergies No known active allergies Medications ergocalciferol (VITAMIN D) 50,000 unit capsule Take 1 capsule (50,000 Units total) by mouth 03/04/2023 Active losartan (COZAAR) 25 mg tablet Take 1 tablet (25 mg total) by mouth daily 03/04/2023 Active [id number] -Lmfolate-algal 27 mg iron-1.13 mg-581.92 mg capsule [...] 03/31/2023 Assessment & Plan (12/01/2023 11:08 AM OVEN LOADER): Continue to advance diet as laid out [...] Department Care Team Description 11/13/2024 11:29 AM OVEN LOADER - 11/13/2024 11:59 PM OVEN LOADER Hospital Encounter [address] [address] Sore throat Discharge Disposition: Discharge to home or self care 11/13/2024 10:30 AM OVEN LOADER Office Visit [facility] at [address] [address] Adrienne Craven, SUJATA Sore throat [...] on file Legal Sex Female 7:57 AM OVEN LOADER Gender Identity Not on file Sexual Orientation Not on file Obstetrics History Last Filed Vital Signs Vital Sign Reading Time Taken Comments Blood Pressure 151/90 11/13/2024 10:49 AM OVEN LOADER Pulse 87 11/13/2024 10:49 AM OVEN LOADER Temperature 36.8 C (98.3 F) 11/13/2024 10:49 AM OVEN LOADER Respiratory Rate 18 11/13/2024 10:4 9 AM OVEN LOADER Oxygen Saturation 96% 11/13/2024 10: 49 AM OVEN LOADER Inhaled Oxygen Concentration - - Weight 116.1 kg (255 lb 14.4 oz) 2024 10:49 AM OVEN LOADER Height 167.6 cm (5' 5.98 ) 11/13/2024 1 0:49 AM OVEN LOADER Body Mass Index 41.32 11/13/2024 10:49 AM OVEN LOADER Plan of Treatment Health Maintenance Due Date [...] Comments THROAT CULTURE Routine 11/13/2024 11:29 AM OVEN LOADER Sore throat INFLUENZA A/B, RSV, AND COVID-19 PCR Routine 11/13/2024 11:29 AM OVEN LOADER Sore throat POCT RAPID STREP Routine 11/13/2024 11:0 2 AM OVEN LOADER Sore throat POC INFLUENZA A/B, COVID-19 ANTIGEN Routine 11/13/2024 10:51 AM OVEN LOADER Sore throat from Last 3 Months Results * Influenza A/B, RSV, and COVID-19 PCR Nasopharyngeal (11/13/2024 11:29 AM OVEN LOADER) Pathologist [facility] COVID-19 RNA Negative Negative [facility] Influenza A RNA Negative Negative [facility] Influenza B RNA Negative Negative [facility] RSV RNA Negative Negative [facility] Comment: Interpretive data: Testing performed by [facility]. This test is performed using the [employer] Xpert Xpress CoV-2/Flu/RSV plus assay. This is a multiplex, real-time reverse transcriptase PCR assay intended for the qualitative detection of nucleic acid from SARS-CoV-2, influenza A, influenza B, and respiratory syncytial virus. This assay has been cleared by the [place] Food and Drug administration. The performance characteristics have been verified by the [facility]. Results must be considered in the clinical context, and a negative result does not rule out infection. Interpretive Data last revised 2023 Nasopharyngeal 11/13/2024 11 :29 AM OVEN LOADER 11/13/2024 2:57 PM OVEN LOADER Narrative [facility] - 11/13/2024 4:53 PM OVEN LOADER Is the Patient experiencing symptoms consistent with COVID?->Yes Reason for testing?->Symptomatic Is the patient experiencing any symptoms consistent with COVID (eg. Fever, cough, shortness of breath)?->Yes Adrienne Craven NP LAB MICROBIOLOGY - GENERAL ORDERABLES Final Result Performing Organization Address [facility] Co de Phone Number MARJORIE DAILEY [address] [place] [address] [facility] * Throat culture Throat (11/13/2024 11:29 AM OVEN LOADER) Report Final Report: No growth of pathogens. Comment:Testing performed by : [facility], [address] [place]., [address] Throat 11/13/2024 11:2 9 AM OVEN LOADER 11/13/2024 5:55 PM OVEN LOADER Narrative [facility] 11/14/2024 1:00 PM OVEN LOADER Testing performed by [facility]biology Laboratory ([phone]). Adrienne Craven NP LAB MICROBIOLOGY - GENERAL ORDERABLES Final Result Performing Organization Address [facility] Co de Phone Number MARJORIE DAILEY [address] Department [place] [address] * POCT rapid strep A (11/13/2024 11:02 AM OVEN LOADER) Rapid Strep A, POC Negative Negative Swab 11/13/2024 11:0 2 AM OVEN LOADER us Adrienne Craven NP POINT OF CARE TEST ORDERAB LES Final Result * POC Influenza A/B, COVID-19 antigen (11/13/2024 10:51 AM OVEN LOADER) Influenza A Ag, POC Negative Negative [facility] Influenza B Ag, POC Negative Negative [facility] COVID-19 Ag POC Presumptive Negative Presumptive Negative, Invalid [facility] Nasal 11/13/2024 10:5 1 AM OVEN LOADER Adrienne Craven [employer] POINT OF CARE TEST ORDERAB LES Final Result [facility] [address] [place] [address], [facility] from Last 3 Months Insurance [facility] Advance Directives For more information, please contact: [phone] * Full Code (Latest Code Status on File) Date Activated Date Inactivated Comments 11/23/2023 12:38 PM 11/24/2023 5:17 PM * Full Code Date Activated Date Inactivated Comments 07/12/2023 11:58 AM 07/12/2023 6:36 PM * Full Code Date Activated Date Inactivated Comments 07/12/2023 11:58 AM 07/12/2023 11:58 AM Care Teams Ramp Agent Relationship Specialty Start Date End Date Jade Damico MD [address] [place] [address] PCP - General Obstetrics and Gynecology 03/31/23
--- NOTE | 2024-12-12 09:41 | ED_ITS ---
HPI - Abdominal Pain General Chief Complaint: Abdominal Pain Stated Complaint: right sided abdominal pain Time Seen by Provider: 12/12/24 08:58 Source: patient Mode of arrival: ambulatory Limitations: no limitations History of Present Illness HPI narrative: Patient is a 39-year-old female, with past medical history of HTN, gastric sleeve surgery 1 year ago, who presents to the ED with c/o R upper abdominal pain. Patient reports the pain has been ongoing for the last 1 month, and worsening. States pain has been more constant over the last couple of weeks. Has been taking ibuprofen intermittently without improvement of the pain. Denies aggravating or alleviating factors. Denies worsening of pain with eating certain foods. Denies any other associated symptoms. Denies nausea, vomiting, diarrhea, constipation, urinary complaints, fevers, shortness of breath. Related Data Home Medications ?Medication ?Instructions ?Recorded ?Confirmed ?Last Taken ?Type losartan 25 mg tablet 25 mg PO DAILY 06/29/23 12/12/24 12/12/24 History Allergies Allergy/AdvReac Type Severity Reaction Status Date / Time No Known Allergies Allergy Verified 12/12/24 08:45 Review of Systems 2 Review of Systems: All systems reviewed & are unremarkable except as noted in HPI. All systems reviewed & are unremarkable except as noted in HPI and below Exam 2 Narrative: GENERAL: Well appearing, morbidly obese with BMI of 42.7, non-toxic, in no acute distress. HEAD: Normocephalic, atraumatic. RESPIRATORY: Airway patent, respirations nonlabored. Clear to auscultation bilaterally, no rales, rhonchi, wheezing. CARDIOVASCULAR: Regular rate and rhythm without murmurs, rubs, or gallops. ABDOMINAL: Soft, mild tenderness palpation throughout right upper lateral abdomen. Nondistended. Normoactive BS. MUSCULOSKELETAL: Moves all extremities. No gross deformities. SKIN: Warm, dry, normal color. NEURO: A&O X3. Speech clear. PSYCHIATRIC: Appropriate mood and affect. Normal interaction. Course Vital Signs Vital signs: Vital Signs Temperature 98.2 F 12/12/24 08:16 Pulse Rate 91 12/12/24 08:16 Respiratory Rate 16 12/12/24 08:16 Blood Pressure 163/90 H 12/12/24 08:16 Pulse Oximetry 98 12/12/24 08:16 Temperature 98.2 F 12/12/24 08:21 Pulse Rate 78 12/12/24 11:41 Respiratory Rate 18 12/12/24 11:41 Blood Pressure 139/77 12/12/24 11:41 Pulse Oximetry 99 12/12/24 11:41 Oxygen Delivery Room Air 12/12/24 08:21 MDM - Abdominal Pain MDM Narrative Medical decision making narrative: Patient presented to ED with 1 month history of right-sided upper abdominal pain. Vital signs are stable upon arrival. She was initially slightly hypertensive, but this resolved without intervention. She does have history of hypertension, on losartan. Laboratory studies are fairly unremarkable. CBC with leukocytosis of 11.2. Stable anemia, consistent with previous records. CMP is unremarkable. Normal kidney function, normal LFTs and lipase. UA with trace amount of RBC, no significant signs of infection. Moderate squamous cells. Will be sent for culture. She does not have any urinary complaints. is negative. CT scan of abdomen pelvis was obtained and showing small sliding hiatal hernia with changes of gastric sleeve procedure. No other concerning features. Given Protonix in the ED. Patient does not currently take anything for acid reflux. Will be started on omeprazole for home. GB was reported normal on CT scan. Given focal TTP in RUQ, will obtain RUQ US to r/o GB etiology. Right upper quadrant ultrasound is also negative. No evidence of gallstones, ductal abnormalities, negative Ornelas sign. Discussed lab and imaging findings, overall reassuring workup with patient. Discussed possibility of acid reflux causing pain versus musculoskeletal pain. No other respiratory findings or suspicion for pulmonary etiology. Again patient will be started on omeprazole, but will also prescribe short course of muscle relaxers for home use. Recommended close follow-up with PCP for further evaluation. She does have an upcoming appointment. Given strict return precautions. She agrees with plan. Discharged in stable condition. Medical Records Attestation: I reviewed the patient's medical records. Lab Data Attestation: I reviewed the patient's lab results. 12/12/24 08:35 12/12/24 08:35 Labs: Lab Results 12/12/24 12/12/24 12/12/24 Range/Units 08:35 08:44 08:50 WBC 11.2 H (4.5-10.0) K/mm3 RBC 4.30 (4.2-5.4) M/mm3 Hgb 11.5 L (12.0-15.0) g/dL Hct 36.4 L (37.0-47.0) % MCV 84.7 (80-100) fl MCH 26.7 (26-34) pg MCHC 31.6 L (32-36) g/dl RDW 14.0 (11.5-14.5) % Plt Count 333 (150-375) k/mm3 MPV 9.7 (7.4-10.4) fl Immature Gran % (Auto) 0.4 (0-0.5) % Neut % (Auto) 59.3 (45.5-73.1) % Lymph % (Auto) 33.6 (18.3-44.2) % Lawrence % (Auto) 4.5 (2.6-8.5) % Eos % (Auto) 1.8 (0-4.4) % Baso % (Auto) 0.4 (0.2-1.2) % Lymph # (Auto) 3.77 H (0.9-3.2) K/mm3 Lawrence # (Auto) 0.5 (0.1-0.6) K/mm3 Eos # (Auto) 0.2 (0-0.3) K/mm3 Baso # (Auto) 0.0 (0.0-0.1) K/mm3 Abs Immat Gran (auto) 0.04 H (0.00-0.031) K/mm3 Absolute Neuts (auto) 6.7 (1.3-6.7) K/mm3 Absolute Nucleated RBC 0.000 (0.0-0.012) K/mm3 Nucleated RBC % 0.0 (0.0-0.2) % Sodium 140 (137-145) mmol/L Potassium 4.0 (3.4-5.0) mmol/L Chloride 105 (98-107) mmol/L Carbon Dioxide 27 (22-30) mmol/L Anion Gap 8 (4-12) mmol/L BUN 15 (7-17) mg/dL Creatinine 0.92 (0.7-1.0) mg/dL Estim Creat Clear Calc 93 ml/min Estimated GFR > 60 (59 - ) Glucose 95 (65-110) mg/dL Calcium 8.7 (8.4-10.2) mg/dL Total Bilirubin 0.3 (0.2-1.3) mg/dL AST 19 (14-36) U/L ALT 17 (6-35) U/L Alkaline Phosphatase 82 (38-126) U/L Total Protein 7.0 (6.3-8.2) g/dL Albumin 4.0 (3.5-5.1) g/dL Lipase 160 (23-300) U/L Urine Color Yellow (Yellow) Urine Appearance Cloudy H (Clear) Urine pH 7.0 (5.0-9.0) Ur Specific [place] 1.023 (1.001-1.035) Urine Protein Negative (Negative) mg/dL Urine Glucose (UA) Negative (Negative) mg/dL Urine Ketones Negative (Negative) mg/dL Ur Blood (Man) Negative (Negative) Urine Nitrate Negative (Negative) Urine Bilirubin Negative (Negative) Urine Urobilinogen 0.2 (<2.0) mg/dL Add Ur Microanalysis Reviewed Leukocyte Esterase Rfl 1+ H (Negative) DERIK/UL Urine RBC 6-10 H (0-2) /hpf Urine WBC 0-5 (0-3) /hpf Ur Squamous Epith Cells Moderate (Few) /hpf Urine Bacteria 1+ H /hpf Urine Casts 0-2 POC Urine HCG, Qual Negative (Negative) Imaging Data Attestation: I personally reviewed and interpreted this imaging study as follows: Radiologist's impression: ITS Impressions Abdomen/Pelvis CT 12/12/24 09:45 IMPRESSION: 1. Small sliding hiatal hernia with changes of gastric sleeve procedure. Abdomen Ultrasound 12/12/24 10:52 IMPRESSION: 1. No etiology for the patient's symptoms. Discharge Plan Discharge Clinical Impression: Right upper quadrant pain, Sliding hiatal hernia, H/O gastric sleeve Patient Disposition: Home, Self-Care Condition: Stable Instructions: Antibiotic Form, Hiatal Hernia (ED), GERD (Gastroesophageal Reflux Disease) (ED), Abdominal Pain (ED) Additional Instructions: Recommend taking omeprazole daily for acid reflux suppression. Avoid foods that are very greasy, spicy, fatty, acidic. Avoid eating food late at night or laying flat immediately after eating. Continue Tylenol as needed for pain. Take muscle relaxers as needed and prescribed. Recommend taking these at night as they may cause sedation. Do not drive, operate heavy machinery, drink alcohol while on muscle relaxers as this may cause further sedation. Follow-up with your primary care doctor for further evaluation. Return to the ED if you experience worsening or severe pain, unable to keep down food or drink, difficulty breathing, rectal bleeding, dark black stools, or any other symptoms of concern. Patient Language: Swedish Prescriptions: New omeprazole 10 mg capsule,delayed release(DR/EC) 10 mg PO DAILY Qty: 30 0RF cyclobenzaprine 5 mg tablet 5 mg PO TID PRN (Reason: muscle spasm) Qty: 10 0RF No Action losartan 25 mg tablet 25 mg PO DAILY Follow-up/Referrals: Mookie,Jade Isaac MD [Primary Care Provider] - Time of Disposition: 11:15
[2024-12-12] MEDS: PANTOPRAZOLE SODIUM IV 40 MG VIAL IV PUSH (10:48)
[2024-12-12 10:53] VITALS: BP 119/80; PULSE 95; RESP 15; O2SAT 96
[2024-12-12 11:41] VITALS: BP 139/77; PULSE 78; RESP 18; O2SAT 99
== END 2024-12-12 11:43 | disposition home or self-care (01) ==
PROVIDERS: Emergency Medicine; Emergency Provider Physician Assistant; PCP Family Medicine
DX: R10.11 Right upper quadrant pain (principal); K44.9 Diaphragmatic hernia without obstruction or gangrene; Z98.84 Bariatric surgery status; I10 Essential (primary) hypertension
CPT/HCPCS: 36415; 74177; 76705; 80053; 81001; 81025; 83690; 85025; 87086; 96374; 96375; 99284; J2270; J2405; J2470; Q9967

== ENCOUNTER 2024-12-25 12:00 | Outpatient (CLI) | payer OTHER, SELFPAY ==
--- NOTE | ~2024-12-25 | MM_ITS ---
EXAMINATION: MM screening sarah BI w bree HISTORY: Screening TECHNIQUE: Craniocaudal and mediolateral oblique 3-D tomosynthesis images were obtained and synthetic 2-D images were generated. CAD analysis was submitted and interpreted. COMPARISON: 10/25/2023 BREAST PARENCHYMAL COMPOSITION: The breasts are heterogeneously dense, which may obscure small masses . FINDINGS: Punctate calcifications are detected bilaterally, stable and benign in appearance. Stable parenchymal pattern without suspicious microcalcifications, architectural distortion, discrete masses or significant asymmetry. IMPRESSION: 1. No mammographic evidence of malignancy. 2. Recommend routine screening mammography in one year. BI-RADS Category 2: Benign finding(s). Reviewed, dictated and finalized at location A.
--- OUTSIDE RECORDS SUMMARY | 2024-12-25 14:07 | XMS_ITS | Data Portability ---
Author Organization [employer] [facility], formerly [facility], Jorge Lee [facility] Address [address] [place] [address] Care Team Providers Care Household Appliances Salesperson Name Role Phone THUY GOMEZ Primary Care [...] By Organization Details Last Modified Time 03/24/2018 [id number] toenail fungus: care instructions Not available 03/24/2018 12:16:39 I explained to t he patient the diagnosis, prognosis, etiology and treatment options for onychomycosis including no treatment, oral and topical medications, Cutera laser therapy, periodic debridement, phenol matrixectomy for permanent nail removal, and temporary nail avulsion followed by use of topical antifungal medication. [email or web address] Not available 03/24/2018 12:15:57 Reason for Referral None Reported. Results Created Date Observation Date Name Description Value Unit Range Abnormal Flag Note LastModifiedBy Organization Detail LastModifiedTime Result Notes None recorded. Procedures Surgical History Date Name Laterality Status Provider Name and Address Organization Details Recorded Time 03/24/2018 [id number] Nail unit biosy SK completed Lennox Plunkett DPM [address] [place] [address], [id number], [facility] [facility] 03/24/2018 12:15:29 Imaging Results None recorded. Procedure Notes None recorded. Medical Equipment None Reported. Allergies No known drug allergies Medications Not known to be on any medication Vitals Date Recorded Body height Body mass index (BMI) Body weight Provider Name and Address Organization Details Last Updated DateTime 03/24/2018 165.1 cm 46.6 kg/m2 110738.86 g Lilly Voss [facility] 03/24/2018 11:57:48 Social History Question Answer Notes LastModified by Organizat ion Details LastModified Time Tobacco Smoking Status Never Smoker Lilly coon, [facility] 03/24/2018 11:58:12 What Is Your [...] Neurologic Disease N Sciatica N Heart Attack ([place]) N Diabetes N Urinary Tract Infections N [...] SNOMED-CT Code Diagnosis ICD10 Code Diagnosis Note [id number] MACIEJ [address] [place] [address] 03/24/2018 11:44:56 03/24/2018 12:11:07 Onychomycosis 941510462 B35.1 Dystrophia unguium 92018 009 L60.3 Health Concerns Section Related Observation LastModified by Organization Detai ls LastModified Time None Recorded Concern Status LastModified by Organization Details LastModified Time None Recorded Advance Directives Directive None Recorded Payers Encounter Date Sequence Insurance Name Policy Number Policy Shafer Covered Member ID Shafer Member ID Guarantor Name 03/24/2018 1 [facility] Kavon Mauricio [id number] Kavon Mauricio Notes Date Note Type Note Provider Name and Address Organization Details Recorded Time 03/24/2018 text/html Dry Skin / FungusReported bypatient.Location:l eft; L1 Quality:painless Severity:severe Duration:weeks Onset/Timing:after geting pedi STarted after a pedicure Lennox Plunkett DPM [address] [place], [address], [facility] 03/24/2018 12:16:42 OBGyn Episode No OBEpisode recorded.
--- OUTSIDE RECORDS SUMMARY | 2024-12-25 14:07 | XMS_ITS | Continuity of Care Document ---
Author Organization [facility] Address [address] [address] [facility] [place] [address] Phone Care Team Providers Care Concrete Spreader Name Role Phone Chris Myers MD Unavailable Unavailable Allergies, Adverse Reactions, Alerts Substance Reaction Status Criticality No Known Allergies Active No Inform ation Medications Medication Instructions Dosage Effective Dates (start - stop) Status Comments spironolactone 50 mg tablet take 1 tablet by oral route every day 50 MG - Active metformin 500 mg tablet take 1 tablet by oral route 2 times every day with morning and evening meals 500 MG - Active amitriptyline 10 mg tablet take 1 tablet by oral route every bedtime 10 MG - Active Procedures Procedure Date OFFICE/OUTPATIENT VISIT, EST OFFICE/OUTPATIENT VISIT, EST PREV VISIT, NEW, AGE 18-39 Advance Directives Directive Yes / No Effective Date File Name No Information Encounters Encounter Description Practice Location Reason(s) For Visit Diagnoses Date Provider Providers Copied on Encounter OFFICE/OUTPA TIENT VISIT, EST [facility], [address] [place], [place], [id number], [place] tel:[phone] [facility] sleep apnea1 (chief complaint) hirsutism1 (chief complaint) headache1 (chief complaint) iron1 (chief complaint) leukocytos is1 (chief complaint) MigraineSleep apneaHirsutismLeuko cytosisBody mass index (BMI) 45.0-49.9, adultMetabolic syndromeIron deficiency 2-201 8 Louis Perez. [address] [address] [place], [id number] , [place]. tel:[phone] Referring Provider: Lopez Rahman [facility], [place], [place], [id number]. tel:[phone] OFFICE/OUTPA TIENT VISIT, EST [facility], [address], [place], [place], [address], [place] tel:[phone] [facility] metabolic1 (chief complaint) hematuria1 (chief complaint) wbc1 (chief complaint) high T (chief complaint) headache1 (chief complaint) Metabolic syndromePolycystic ovarian syndromeLeukocytosi sSleep apneaMigraineHematu riaVitamin D deficiency, unspecified Louis Perez. [address] [facility] [address], [place], [place], [address] , [place]. [phone] Referring Provider: Lopez Rahman [facility], [place], [place], [id number]. tel:[phone] PREV VISIT, NEW, AGE 18-39 [facility], [facility] [address], [place], [place], [address], [place] tel:[phone] [facility] Physical (chief complaint) Encntr for general adult medical exam w/o abnormal findingsAcneHirsuti smAmenorrheaObesity 8 Louis Perez. [address], [place], [place], [address] , [place]. [phone] Referring Provider: Lopez Rahman [facility], [place], [place], [id number]. tel:[phone] Family History Family Member Type Diagnosis Age At Onset Father Problem (finding) unknown Brother Problem (finding) Alive and well Mother Problem (finding) Hypertension Payers Payer name Insurance type Covered green party ID Authoriza tion(s) No Information Social History Type Description Quantity Date Captured Comments Alcohol Use Details No Caffeine Use Details Unknown Tobacco Use Status Current non-smoker 16 Smoking Status Never smoker Sex Female Vital Signs Date / Time: Height Weight BMI Pulse Rate Blood Pressure Temperature Respiratory Rate Body Surface Area Head Circumference BMI percentile Pulse Ox Inhaled Ox 12:48 PM 65.50 in 291.00 lbs 47.6 9 kg/m eter (2) 98 /min 137/89 mm[Hg] 98.5 F 18 /min Chief Complaint And Reason For Visit From encounter dated '07/24/2018 11:30'. sleep apnea1 (chief complaint). Description: Pt has sleep apnea. Pt supposes to go back to sleep center for CPAP but she could not afford it now. Pt does snore and feels fatigue hirsutism1 (chief complaint). Description: Pt has hirsutism pt took spironolactone which helped herPt has irregular period. Pt is out of spironolactone for 4 weeks now. Pt notices less hair growth headache1 (chief complaint). Description: Pt has intermittent migraine headache. Pt is noncompliantwith amitriptyline. Pt has throbbing headache about twice last month. Pt is out of amitriptyline. Pt did not have headache while on amitriptyline. iron1 (chief complaint). Description: Pt has mild low iron saturation Pt denies any GI bleeding leukocytosis1 (chief complaint). Description: Pt has persistent leukocytosis. denies any fever, chill or illness. Plan Of Treatment Date Type Action Status Goal Special diet education compl eted Goal Special diet education compl eted Goal Special diet education compl eted Referral Ordered: SLEEP STUDY, ATTENDED ordered History Of Present Illness Encounter Date Complaint History Of Prese nt Illness iron1 Pt has mild low iron saturation Pt denies any GI bleeding leukocytosis1 Pt has persisten t leukocytosis. denies any fever, chill or illness. headache1 Pt has intermitt ent migraine headache. Pt is noncompliant with amitriptyline. Pt has throbbing headache about twice last month. Pt is out of amitriptyline. Pt did not have headache while on amitriptyline. hirsutism1 Pt has hirsutism pt took spironolactone which helped her Pt has irregular period. Pt is out of spironolactone for 4 weeks now. 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 Pt supposes to go back to sleep center for CPAP but she could not afford it now. Pt does snore and feels fatigue headache1 Pt has Migraine headache Pt has not had headache since starting amitriptyline. However, it makes her tired the next day high T Pt has irregular period and hirsutism and high T. Pt may have PCOS wbc1 Pt has mild leuk ocytosis and low MCV pt is not anemic. Pt denies any fever, chill or any malaise. hematuria1 Pt has mild velma turia. Pt states that she may have done the lab while on her period. Pt denies any UTI symptoms metabolic1 Pt has mild high A1c. Her BG is ok Pt denies any polyuria, polydipsia Physical Pt needs annual physical pt has chronic migraine headache since her teen years pt denies any head injury Pt denies waking up at night with headache Pt has throbbing headache around temporal area with photophobia and nausea with headache Pt has headache 3-4 per month. Pt denies any worsening headache. pt took topamax in the past which made pt very jittery and she could not tolerate it. Pt only takes OTC meds PRN for headache Pt states that milk and pork trigger her migraine. Pt denies any acute headache. Pt sometimes canot avoid all meat. She already stopped drinking milk. Pt also needs overall check up. Pt is obese Pt has been on current weight for 6-7. Pt feels fatigue and snores at night Pt has irregular period and she missed her period frequently. Instructions Date Instruction Additional Infor dakota Special diet education Related t o Body mass index (BMI) 45.0-49.9, adult Weight management Related to Gavin deedee Special diet education Related t o Body mass index (BMI) 45.0-49.9, adult Increase physical activity Relat ed to Metabolic syndrome Weight management Related to Met abolic syndrome Special diet education Related t o Body mass index (BMI) 45.0-49.9, adult Perform monthly self breast examinations. Related to Encntr for general adult medical exam w/o abnormal findings Increase activity. Related to En cntr for general adult medical exam w/o abnormal findings Assessments Type Assessment Date assessment Migraine assessment Sleep apnea assessment Hirsutism assessment Leukocytosis assessment Body mass index (BMI) 45.0-49.9, adult assessment Metabolic syndrome assessment Iron deficiency Mental Status Date Cognitive Assessment Orientation - [place] ed to time, place, person, situation.
--- OUTSIDE RECORDS SUMMARY | 2024-12-25 14:07 | XMS_ITS | Data Portability ---
Author Organization [facility] [place] Address [address] [place] [address] Assessment No assessment recorded. Plan of Treatment [...] as clini kevin jones nted. Not Available [facility] (Lab) [address], [place], [address], 07/03/2021 13:05:13 Result Notes None recorded. Problems Name Problem SNOMED Code Status Onset Date Resolution Date Notes Provider Name and Address Organization Details Recorded Time SNOMED CT Concept Completed 201806/24/2021 Encntr for customer sales representative exam (general) (routine) w/o abn findings;R ecorded Elsewhere: No Locatio n: [facility] rce: EHR Chroni c: N Practice ID: [id number] Billa ble Time: 10:30:00 AM Sylvia coon [facility] 15:21:41 Problem Notes None recorded. Procedures Surgical History Date Name Laterality Status Provider Name and Address Organization Details Recorded Time 04/17/2019 Date of Last Pap Smear completed Sylvia Beasley [facility] 06/24/2021 15:22:08 Imaging Results None recorded. Procedure Notes None recorded. Medical Equipment None Reported. Allergies No known drug allergies Medications Name Sig Start Date Stop Date Status Note LastModified by Organization Details LastModified Time Vitamin D2 1,250 mcg (50,000 unit) capsule take 1 capsule by oral route every week 06/24 completed Prescribe d Elsewhere : No Locati on: [facility] By: dmrose En counter DateTime: 10:27:10 AM Not Available Not Available Not Available Vitals Date Recorded Body height Body mass index (BMI) Body weight Systolic blood pressure Diastolic blood pressure Provider Name and Address Organization Details Last Updated DateTime 06/29/2021 162.56 cm 52.4 kg/m2 991180.6 7 g 131 mm[Hg] 88 mm[Hg] Sylvia Beasley [facility] 14:12:37 Social History None recorded. Functional Status None recorded. Mental Status None recorded. Family History Relationship Description Onset Age of this Age Resolved Age Notes LastModified by Organization Details LastModified Time Mother Hypertensive disorder Not available 2020 15:23:34 Mother Malignant tumor of kidney [email or web address] Not available 2020 14:14:27 Maternal Aunt Malignant tumor of lung [email or web address] Not available 2020 14:14:05 Maternal Uncle Carcinoma of prostate [email or web address] Not available 2020 14:14:18 Medical History Condition [...] SNOMED-CT Code Diagnosis ICD10 Code Diagnosis Note [id number] Venita Vegashilpi [place] [address] [address] 06/29/2021 14:01:07 06/29/2021 14:46:23 Gynecologic examination [id number] Z01.419 Z11.51 Take Calcium with Vitamin D [...] depression; No anxiety; No PMDD Venita Toussaint [facility] 06/29/2021 14:34:02 OBGyn Episode Ob Episode Information Episode Created Date Number of Fetuses Patient Bloodtype Patient rh Status Prepregnancy Weight lbs Domestic Partner Domestic Partner Phone Father Name Bridge Construction Inspector Status 06/24/20 21 1 CLOSED Fetus Data First Name Last Name Admitted to NICU Weight (g) Sex Living Outcome Pediatric Complications Fetus ID Race Codes Race Delivery Type M [id number] Vaginal Delivery Aaron Calculation Initial Aaron Date [...] Domestic Partner Domestic Partner Phone Father Name Bridge Construction Inspector Status 06/24/20 21 1 DELETED Aaron Calculation [...] Domestic Partner Domestic Partner Phone Father Name Bridge Construction Inspector Status 06/24/20 21 1 CLOSED Fetus Data First Name Last Name Admitted to NICU Weight (g) Sex Living Outcome Pediatric Complications Fetus ID Race Codes Race Delivery Type M Full Term [id number] Vaginal Delivery Aaron Calculation Initial Aaron Date [...] Domestic Partner Domestic Partner Phone Father Name Bridge Construction Inspector Status 06/24/20 21 1 CLOSED Fetus Data First Name Last Name Admitted to NICU Weight (g) Sex Living Outcome Pediatric Complications Fetus ID Race Codes Race Delivery Type F Full Term 66452 Vaginal Delivery Aaron Calculation Initial Aaron Date [...] Domestic Partner Domestic Partner Phone Father Name Bridge Construction Inspector Status 06/24/20 21 1 CLOSED Fetus Data First Name Last Name Admitted to NICU Weight (g) Sex Living Outcome Pediatric Complications Fetus ID Race Codes Race Delivery Type M 06665 Vaginal Delivery Aaron Calculation Initial Aaron Date [...] Domestic Partner Domestic Partner Phone Father Name Bridge Construction Inspector Status 06/24/20 21 1 CLOSED Fetus Data First Name Last Name Admitted to NICU Weight (g) Sex Living Outcome Pediatric Complications Fetus ID Race Codes Race Delivery Type , Spontane ous 62598 Aaron Calculation Initial Aaron Date Initial Exam [...]
--- OUTSIDE RECORDS SUMMARY | 2024-12-25 14:07 | XMS_ITS | Referral Summary ---
Author Organization [facility] Address [address] [place] [address] Care Team Providers Care Complementary Health Therapists Name Role Phone Jade Damico MD Primary Care Provider Encounters Date Type Department Care Team Description 11/13/2024 11:29 AM IMPLEMENTATION ENGINEER - 11/13/2024 11:59 PM IMPLEMENTATION ENGINEER Hospital Encounter [address] [address] Sore throat Discharge Disposition: Discharge to home or self care 11/13/2024 10:30 AM IMPLEMENTATION ENGINEER Office Visit [facility] at [address] [address] Adrienne Craven NP Sore throat (Primary Dx) from Last 3 Months Allergies No known active allergies Medications ergocalciferol (VITAMIN D) 50,000 unit capsule Take 1 capsule (50,000 Units total) by mouth 03/04/2023 Active losartan (COZAAR) 25 mg tablet Take 1 tablet (25 mg total) by mouth daily 03/04/2023 Active rseobvom25-dwbj -Lmfolate-algal 27 mg iron-1.13 mg-581.92 mg capsule [...] 03/31/2023 Assessment & Plan (12/01/2023 11:08 AM IMPLEMENTATION ENGINEER): Continue to advance diet as laid out [...] on file Legal Sex Female 7:57 AM IMPLEMENTATION ENGINEER Gender Identity Not on file Sexual Orientation Not on file Last Filed Vital Signs Vital Sign Reading Time Taken Comments Blood Pressure 151/90 11/13/2024 10:49 AM IMPLEMENTATION ENGINEER Pulse 87 11/13/2024 10:49 AM IMPLEMENTATION ENGINEER Temperature 36.8 C (98.3 F) 11/13/2024 10:49 AM IMPLEMENTATION ENGINEER Respiratory Rate 18 11/13/2024 10:4 9 AM IMPLEMENTATION ENGINEER Oxygen Saturation 96% 11/13/2024 10: 49 AM IMPLEMENTATION ENGINEER Inhaled Oxygen Concentration - - Weight 116.1 kg (255 lb 14.4 oz) 2024 10:49 AM IMPLEMENTATION ENGINEER Height 167.6 cm (5' 5.98 ) 11/13/2024 1 0:49 AM IMPLEMENTATION ENGINEER Body Mass Index 41.32 11/13/2024 10:49 AM IMPLEMENTATION ENGINEER Plan of Treatment Not on file Procedures Procedure Name Priority Date/Time Associated Diagnosis Comments THROAT CULTURE Routine 11/13/2024 11:29 AM IMPLEMENTATION ENGINEER Sore throat INFLUENZA A/B, RSV, AND COVID-19 PCR Routine 11/13/2024 11:29 AM IMPLEMENTATION ENGINEER Sore throat POCT RAPID STREP Routine 11/13/2024 11:0 2 AM IMPLEMENTATION ENGINEER Sore throat POC INFLUENZA A/B, COVID-19 ANTIGEN Routine 11/13/2024 10:51 AM IMPLEMENTATION ENGINEER Sore throat from Last 3 Months Results * Influenza A/B, RSV, and COVID-19 PCR Nasopharyngeal (11/13/2024 11:29 AM IMPLEMENTATION ENGINEER) COVID-19 RNA Negative Negative Influenza A RNA Negative Negative [facility] Influenza B RNA Negative Negative [facility] RSV RNA Negative Negative [facility] Comment: Interpretive data: Testing performed by [facility]. This test is performed using the [employer] Xpert Xpress CoV-2/Flu/RSV plus assay. This is a multiplex, real-time reverse transcriptase PCR assay intended for the qualitative detection of nucleic acid from SARS-CoV-2, influenza A, influenza B, and respiratory syncytial virus. This assay has been cleared by the [place] Food and Drug administration. The performance characteristics have been verified by the [facility]. Results must be considered in the clinical context, and a negative result does not rule out infection. Interpretive Data last revised 2023 Nasopharyngeal 11/13/2024 11 :29 AM IMPLEMENTATION ENGINEER 11/13/2024 2:57 PM IMPLEMENTATION ENGINEER Narrative [facility] - 11/13/2024 4:53 PM IMPLEMENTATION ENGINEER Is the Patient experiencing symptoms consistent with COVID?->Yes Reason for testing?->Symptomatic Is the patient experiencing any symptoms consistent with COVID (eg. Fever, cough, shortness of breath)?->Yes Adrienne Craven NP LAB MICROBIOLOGY - GENERAL ORDERABLES Final Result MARJORIE [address] [facility] Department [place] [address] * Throat culture Throat (11/13/2024 11:29 AM IMPLEMENTATION ENGINEER) Report Final Report: No growth of pathogens. Comment:Testing performed by : [facility], [address] [facility] [place]., [address] Throat 11/13/2024 11:2 9 AM IMPLEMENTATION ENGINEER 11/13/2024 5:55 PM IMPLEMENTATION ENGINEER Narrative [facility] - 11/14/2024 1:00 PM IMPLEMENTATION ENGINEER Testing performed by [facility] ([phone]). Adrienne Craven NP LAB MICROBIOLOGY - GENERAL ORDERABLES Final Result [place]IE [place] [address] [address] Department [place] [address] * POCT rapid strep A (11/13/2024 11:02 AM IMPLEMENTATION ENGINEER) Rapid Strep A, POC Negative Negative Swab 11/13/2024 11:0 2 AM IMPLEMENTATION ENGINEER Adrienne Craven NP POINT OF CARE TEST ORDERAB LES Final Result * POC Influenza A/B, COVID-19 antigen (11/13/2024 10:51 AM IMPLEMENTATION ENGINEER) Influenza A Ag, POC Negative Negative [facility] Influenza B Ag, POC Negative Negative [facility] COVID-19 Ag POC Presumptive Negative Presumptive Negative, Invalid [facility] Nasal 11/13/2024 10:5 1 AM IMPLEMENTATION ENGINEER Adrienne Craven DYE HOUSE HELPER POINT OF CARE TEST ORDERAB LES Final Result Performing Organization Address City/[facility] Co de Phone Number [facility] [place] [address], [facility] from Last 3 Months Insurance [facility] Advance Directives For more information, please contact: [phone] * Full Code (Latest Code Status on File) Date Activated Date Inactivated Comments 11/23/2023 12:38 PM 11/24/2023 5:17 PM * Full Code Date Activated Date Inactivated Comments 07/12/2023 11:58 AM 07/12/2023 6:36 PM * Full Code Date Activated Date Inactivated Comments 07/12/2023 11:58 AM 07/12/2023 11:58 AM Care Teams Complementary Health Therapists Relationship Specialty Start Date End Date Jade Damico MD [address] [place] [address] PCP - General Obstetrics and Gynecology 03/31/23
--- OUTSIDE RECORDS SUMMARY | 2024-12-25 14:07 | XMS_ITS | Clinical Summary ---
Author Organization [facility] Address [facility] [place] [address] Care Team Providers Care Pilot Plant Operator Name Role Phone Jade Damico MD Primary Care Provider [phone] Allergies No known active allergies Medications ergocalciferol (VITAMIN D) 50,000 unit capsule Take 1 capsule (50,000 Units total) by mouth 03/04/2023 Active losartan (COZAAR) 25 mg tablet Take 1 tablet (25 mg total) by mouth daily 03/04/2023 Active [id number] -Lmfolate-algal 27 mg iron-1.13 mg-581.92 mg capsule [...] 03/31/2023 Assessment & Plan (12/01/2023 11:08 AM GOVERNMENT AFFAIRS DIRECTOR): Continue to advance diet as laid out [...] Department Care Team Description 11/13/2024 11:29 AM GOVERNMENT AFFAIRS DIRECTOR - 11/13/2024 11:59 PM GOVERNMENT AFFAIRS DIRECTOR Hospital Encounter [address] [address] Sore throat Discharge Disposition: Discharge to home or self care 11/13/2024 10:30 AM GOVERNMENT AFFAIRS DIRECTOR Office Visit [facility] at [address] [address] Adrienne Craven, SUJATA Sore throat [...] on file Legal Sex Female 7:57 AM GOVERNMENT AFFAIRS DIRECTOR Gender Identity Not on file Sexual Orientation Not on file Obstetrics History Last Filed Vital Signs Vital Sign Reading Time Taken Comments Blood Pressure 151/90 11/13/2024 10:49 AM GOVERNMENT AFFAIRS DIRECTOR Pulse 87 11/13/2024 10:49 AM GOVERNMENT AFFAIRS DIRECTOR Temperature 36.8 C (98.3 F) 11/13/2024 10:49 AM GOVERNMENT AFFAIRS DIRECTOR Respiratory Rate 18 11/13/2024 10:4 9 AM GOVERNMENT AFFAIRS DIRECTOR Oxygen Saturation 96% 11/13/2024 10: 49 AM GOVERNMENT AFFAIRS DIRECTOR Inhaled Oxygen Concentration - - Weight 116.1 kg (255 lb 14.4 oz) 2024 10:49 AM GOVERNMENT AFFAIRS DIRECTOR Height 167.6 cm (5' 5.98 ) 11/13/2024 1 0:49 AM GOVERNMENT AFFAIRS DIRECTOR Body Mass Index 41.32 11/13/2024 10:49 AM GOVERNMENT AFFAIRS DIRECTOR Plan of Treatment Health Maintenance Due Date [...] Comments THROAT CULTURE Routine 11/13/2024 11:29 AM GOVERNMENT AFFAIRS DIRECTOR Sore throat INFLUENZA A/B, RSV, AND COVID-19 PCR Routine 11/13/2024 11:29 AM GOVERNMENT AFFAIRS DIRECTOR Sore throat POCT RAPID STREP Routine 11/13/2024 11:0 2 AM GOVERNMENT AFFAIRS DIRECTOR Sore throat POC INFLUENZA A/B, COVID-19 ANTIGEN Routine 11/13/2024 10:51 AM GOVERNMENT AFFAIRS DIRECTOR Sore throat from Last 3 Months Results * Influenza A/B, RSV, and COVID-19 PCR Nasopharyngeal (11/13/2024 11:29 AM GOVERNMENT AFFAIRS DIRECTOR) Pathologist [facility] COVID-19 RNA Negative Negative [facility] Influenza A RNA Negative Negative [facility] Influenza B RNA Negative Negative [facility] RSV RNA Negative Negative [facility] Comment: Interpretive data: Testing performed by [facility]. This test is performed using the [employer] Xpert Xpress CoV-2/Flu/RSV plus assay. This is a multiplex, real-time reverse transcriptase PCR assay intended for the qualitative detection of nucleic acid from SARS-CoV-2, influenza A, influenza B, and respiratory syncytial virus. This assay has been cleared by the [place] Food and Drug administration. The performance characteristics have been verified by the [facility]. Results must be considered in the clinical context, and a negative result does not rule out infection. Interpretive Data last revised 2023 Nasopharyngeal 11/13/2024 11 :29 AM GOVERNMENT AFFAIRS DIRECTOR 11/13/2024 2:57 PM GOVERNMENT AFFAIRS DIRECTOR Narrative [facility] - 11/13/2024 4:53 PM GOVERNMENT AFFAIRS DIRECTOR Is the Patient experiencing symptoms consistent with COVID?->Yes Reason for testing?->Symptomatic Is the patient experiencing any symptoms consistent with COVID (eg. Fever, cough, shortness of breath)?->Yes Adrienne Craven NP LAB MICROBIOLOGY - GENERAL ORDERABLES Final Result Performing Organization Address [facility] Co de Phone Number MARJORIE DAILEY [address] Department [place] [address] [place] * Throat culture Throat (11/13/2024 11:29 AM GOVERNMENT AFFAIRS DIRECTOR) Report Final Report: No growth of pathogens. Comment:Testing performed by : [facility], [address] [place]., [address] Throat 11/13/2024 11:2 9 AM GOVERNMENT AFFAIRS DIRECTOR 11/13/2024 5:55 PM GOVERNMENT AFFAIRS DIRECTOR Narrative [facility] 11/14/2024 1:00 PM GOVERNMENT AFFAIRS DIRECTOR Testing performed by [facility] Microbiology Laboratory ([phone]). Adrienne Craven NP LAB MICROBIOLOGY - GENERAL ORDERABLES Final Result Performing Organization Address [facility] Co de Phone Number MARJORIE DAILEY [address] Department [place] [address] * POCT rapid strep A (11/13/2024 11:02 AM GOVERNMENT AFFAIRS DIRECTOR) Rapid Strep A, POC Negative Negative Swab 11/13/2024 11:0 2 AM GOVERNMENT AFFAIRS DIRECTOR us Adrienne Craven NP POINT OF CARE TEST ORDERAB LES Final Result * POC Influenza A/B, COVID-19 antigen (11/13/2024 10:51 AM GOVERNMENT AFFAIRS DIRECTOR) Influenza A Ag, POC Negative Negative [facility] Influenza B Ag, POC Negative Negative [facility] COVID-19 Ag POC Presumptive Negative Presumptive Negative, Invalid [facility] Nasal 11/13/2024 10:5 1 AM GOVERNMENT AFFAIRS DIRECTOR Adrienne Craven MAKE UP WORKER POINT OF CARE TEST ORDERAB LES Final Result [facility] [address] [place] [address], [facility] from Last 3 Months Insurance [facility] Advance Directives For more information, please contact: [phone] * Full Code (Latest Code Status on File) Date Activated Date Inactivated Comments 11/23/2023 12:38 PM 11/24/2023 5:17 PM * Full Code Date Activated Date Inactivated Comments 07/12/2023 11:58 AM 07/12/2023 6:36 PM * Full Code Date Activated Date Inactivated Comments 07/12/2023 11:58 AM 07/12/2023 11:58 AM Care Teams Pilot Plant Operator Relationship Specialty Start Date End Date Jade Damico MD [address] [place] [address] PCP - General Obstetrics and Gynecology 03/31/23
== END 2024-12-25 12:01 | disposition home or self-care (01) ==
LOC: CHSIMG 12:02
PROVIDERS: PCP Family Medicine; Visit Provider Family Medicine
DX: Z12.31 Encounter for screening mammogram for malignant neoplasm of breast (principal)
CPT/HCPCS: 77063; 77067

== ENCOUNTER 2025-03-27 10:52 | Emergency (ER) | payer OTHER, SELFPAY ==
[2025-03-27] VITALS (27 sets, daily range): BP systolic 118–155; BP diastolic 77–102; PULSE 80–95; RESP 20; TEMP 36.6; O2SAT 96–100
--- NOTE | ~2025-03-27 | US_ITS ---
EXAM: US pelvic complete w TV - 03/27/2025 11:53 CDT History: 39 years old Female with bleeding, cramping, recent Comparison: None available. Technique Real time scanning of the pelvis was performed. Findings The uterus measures 9.5 x 6.7 x 4.2 cm. 0.6 x 0.7 x 0.4 cm echogenic focus in the uterine wall may re present focal calcification. Endometrium is grossly unremarkable. The endometrial stripe measures 1 1 mm. The right ovary is not visualized. The left ovary measures 2.3 x 2.3 x 1.6 cm and has intact blood fl ow. There is no significant fluid in the cul-de-sac. Nabothian cysts are seen. Impression: Right ovary not visualized. Likely focal calcification in the myometrium of the uterus. Reviewed, dictated and finalized at location A. Impression: Right ovary not visualized. Likely focal calcification in the myometrium of the uterus.
[2025-03-27 11:20] LABS: Basophils Percent Auto 0.3 % (0.2-1.2); Eosinophils Absolute Auto 0.2 K/mm3 (0-0.3); Eosinophils Percent Auto 1.3 % (0-4.4); Hematocrit 38.2 % (37.0-47.0); Hemoglobin 11.9 g/dL (12.0-15.0); Immature Granulocyte Absolute 0.07 K/mm3 (0.00-0.031); Immature Granulocyte Percent A 0.6 % (0-0.5); Lymphocytes Absolute Auto 3.46 K/mm3 (0.9-3.2); Lymphocytes Percent Auto 27.2 % (18.3-44.2); Mean Corpuscular HGB Conc 31.2 g/dl (32-36); Mean Corpuscular Hemoglobin 26.6 pg (26-34); Mean Corpuscular Volume 85.5 fl (80-100); Mean Platelet Volume 9.4 fl (7.4-10.4); Monocytes Absolute Auto 0.6 K/mm3 (0.1-0.6); Monocytes Percent Auto 4.5 % (2.6-8.5); Neutrophils Absolute Auto 8.4 K/mm3 (1.3-6.7); Neutrophils Percent Auto 66.1 % (45.5-73.1); Platelet Count Result 353 k/mm3 (150-375); Red Blood Count 4.47 M/mm3 (4.2-5.4); Red Cell Distribution Width 13.8 % (11.5-14.5); White Blood Count 12.7 K/mm3 (4.5-10.0)
--- NOTE | 2025-03-27 11:27 | ED_ITS ---
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 Reports she had an on the 4th of this month. She was about 9 weeks . Her bleeding has slowed. Over the last couple of days she has started to have more heavy bleeding and had some cramping today which concerned her and prompted her to be seen. Related Data Home Medications ?Medication ?Instructions ?Recorded ?Confirmed ?Last Taken ?Type losartan 25 mg tablet 25 mg PO DAILY 06/29/23 12/12/24 12/12/24 History Allergies Allergy/AdvReac Type Severity Reaction Status Date / Time No Known Allergies Allergy Verified 03/27/25 10:58 Review of Systems 2 Review of Systems: All systems reviewed & are unremarkable except as noted in HPI and below PMFSH Past Medical History Medical History (Updated 03/27/25 @ 14:09 by Catrina Driscoll PA-C) History of hypertension Exam 2 Narrative: GENERAL: Well-appearing, well-nourished, and in no acute distress. HEAD: Normocephalic, atraumatic. EYES: EOMI. CHEST: Clear to auscultation. No respiratory distress. No wheezes rales or rhonchi HEART: Regular rate and rhythm. No murmur heard. Normal peripheral pulses. ABDOMEN: Soft, nontender, nondistended, normal active bowel sounds. EXTREMITIES: Normal range of motion. No edema. SKIN: Warm, dry, no rash. NEURO: No focal deficits. Alert and oriented x3. PSYCH: Normal mood and affect Course Course Emergency Course: Patient was updated on her workup. Resting comfortably Vital Signs Vital signs: Vital Signs Temperature 97.9 F 03/27/25 10:55 Pulse Rate 89 03/27/25 10:55 Respiratory Rate 03/27/25 10:55 Blood Pressure 155/79 H 03/27/25 10:55 Pulse Oximetry 100 03/27/25 10:55 Oxygen Delivery Room Air 03/27/25 10:55 Temperature 97.9 F 03/27/25 10:55 Pulse Rate 95 03/27/25 11:47 Respiratory Rate 03/27/25 10:55 Blood Pressure 148/102 H 03/27/25 11:47 Pulse Oximetry 100 03/27/25 10:55 Oxygen Delivery Room Air 03/27/25 10:55 MDM - OB/Uterine Contractions MDM Narrative Medical decision making narrative: Patient presents the emergency department for vaginal bleeding, pelvic cramping. Recent medical 3 weeks ago at about 9 weeks gestation. Her vitals are stable. Hemoglobin is 11.9. Metabolic panel without concerning findings. Patient B positive. Quantitative beta HCG 38.55. Pelvic ultrasound shows a calcification in the myometrium. No other acute findings. Patient was updated on her workup and agrees with plan of care. Instructed further follow-up with her OBGYN. She was given warnings to return to the ER Differential Diagnosis Differential diagnosis: Likely other (Retained products of conception, miscarriage) Lab Data Attestation: I reviewed the patient's lab results. 03/27/25 11:13 03/27/25 11:13 Labs: Lab Results 03/27/25 Range/Units 11:13 WBC 12.7 H (4.5-10.0) K/mm3 RBC 4.47 (4.2-5.4) M/mm3 Hgb 11.9 L (12.0-15.0) g/dL Hct 38.2 (37.0-47.0) % MCV 85.5 (80-100) fl MCH 26.6 (26-34) pg MCHC 31.2 L (32-36) g/dl RDW 13.8 (11.5-14.5) % Plt Count 353 (150-375) k/mm3 MPV 9.4 (7.4-10.4) fl Immature Gran % (Auto) 0.6 H (0-0.5) % Neut % (Auto) 66.1 (45.5-73.1) % Lymph % (Auto) 27.2 (18.3-44.2) % [place] % (Auto) 4.5 (2.6-8.5) % Eos % (Auto) 1.3 (0-4.4) % Baso % (Auto) 0.3 (0.2-1.2) % Lymph # (Auto) 3.46 H (0.9-3.2) K/mm3 [place] # (Auto) 0.6 (0.1-0.6) K/mm3 Eos # (Auto) 0.2 (0-0.3) K/mm3 Baso # (Auto) 0.0 (0.0-0.1) K/mm3 Abs Immat Gran (auto) 0.07 H (0.00-0.031) K/mm3 Absolute Neuts (auto) 8.4 H (1.3-6.7) K/mm3 Absolute Nucleated RBC 0.000 (0.0-0.012) K/mm3 Nucleated RBC % 0.0 (0.0-0.2) % PT 13.3 (11.1-14.7) Seconds INR 1.0 APTT 26.5 (22.3-36.8) Seconds Sodium 139 (137-145) mmol/L Potassium 3.9 (3.4-5.0) mmol/L Chloride 106 (98-107) mmol/L Carbon Dioxide 24 (22-30) mmol/L Anion Gap 9 (4-12) mmol/L BUN 13 (7-17) mg/dL Creatinine 0.85 (0.7-1.0) mg/dL Estim Creat Clear Calc 99 ml/min Estimated GFR > 60 (59 - ) Glucose 96 (65-110) mg/dL Calcium 9.1 (8.4-10.2) mg/dL Total Bilirubin 0.4 (0.2-1.3) mg/dL AST 27 (14-36) U/L ALT 19 (6-35) U/L Alkaline Phosphatase 75 (38-126) U/L Total Protein 8.1 (6.3-8.2) g/dL Albumin 4.1 (3.5-5.1) g/dL Beta HCG, Quant 38.55 mIU/ML Blood Type B Positive Antibody Screen Negative Screen Not Reportable Baby's Blood Type Not Reportable Baby's DIVYA Not Reportable Doses of RhIg Required 0 Imaging Data Radiologist's impression: ITS Impressions Pelvic/Transvag US 03/27/25 13:25 Impression: Right ovary not visualized. Likely focal calcification in the myometrium of the uterus. Critical Care Time Critical Care Time Critical Care Time: No Discharge Plan Discharge Clinical Impression: in first trimester Patient Disposition: Home Condition: Stable Instructions: Miscarriage (ED) Additional Instructions: Return to the ER if you experience fever, chest pain, shortness of breath, vomiting, you are unable to keep down liquids or solids, you are soaking through a pad/hour, or any other symptoms that are concerning to you Remain well hydrated. Tylenol or ibuprofen as needed for discomfort Follow up with your ORACLE MANAGER Patient Language: Lao Prescriptions: No Action losartan 25 mg tablet 25 mg PO DAILY omeprazole 10 mg capsule,delayed release(DR/EC) 10 mg PO DAILY Qty: 30 0RF cyclobenzaprine 5 mg tablet 5 mg PO TID PRN (Reason: muscle spasm) Qty: 10 0RF Follow-up/Referrals: Mookie,Jade Isaac MD [Primary Care Provider] -
[2025-03-27 11:31] LABS: Alanine Aminotransferase 19 U/L (6-35); Albumin Level 4.1 g/dL (3.5-5.1); Alkaline Phosphatase 75 U/L (38-126); Anion Gap 9 mmol/L (4-12); Aspartate Amino Transferase 27 U/L (14-36); Bilirubin,Total 0.4 mg/dL (0.2-1.3); Blood Urea Nitrogen 13 mg/dL (7-17); Calcium 9.1 mg/dL (8.4-10.2); Carbon Dioxide 24 mmol/L (22-30); Chloride 106 mmol/L (98-107); Estimated CRCL calculation 99 ml/min; Estimated Glomerular Filt Rate > 60; Glucose 96 mg/dL (65-110); Potassium 3.9 mmol/L (3.4-5.0); Sodium 139 mmol/L (137-145); Total Protein 8.1 g/dL (6.3-8.2)
[2025-03-27 11:39] LABS: Prothrombin Time 13.3 Seconds (11.1-14.7)
[2025-03-27 11:40] LABS: Partial Thromboplastin Time 26.5 Seconds (22.3-36.8)
[2025-03-27 11:47] LABS: Beta HCG Quantitative 38.55 mIU/ML
== END 2025-03-27 15:43 | disposition home or self-care (01) ==
PROVIDERS: Emergency Provider Physician Assistant; PCP Family Medicine
DX: O03.4 Incomplete spontaneous abortion without complication (principal); I10 Essential (primary) hypertension
CPT/HCPCS: 36415; 76830; 76856; 80053; 84702; 85025; 85461; 85610; 85730; 86850; 86900; 86901; 99284

== ENCOUNTER 2025-08-08 17:10 | Emergency (ER) | payer OTHER, SELFPAY ==
--- NOTE | ~2025-08-08 | US_ITS ---
EXAMINATION: US OB <= 14 weeks fetus INDICATION: Vaginal bleeding. Possible recent . Comparison:No prior studies for comparison. TECHNIQUE: Multiple transabdominal and endovaginal sonographic images of the pelvis performed. FINDINGS: The uterus measures 10.3 x 5.9 x 6.9 cm. The endometrial complex measures 1.3 cm. Endometrium is heterogeneous with mildly increased vascularity. The right ovary measures 3.8 x 2.1 x 3.9 cm and the left ovary measures 2.9 x 1.7 x 1.8 cm. There are small follicles in each ovary. Normal doppler signal in both ovaries. There is no free fluid in the pelvis. There are no abnormal masses seen on either side. IMPRESSION: 1. Mildly thickened endometrium with heterogeneous appearance and mildly increased vascularity. No gestational sac identified. Differential diagnosis includes very early intrauterine , failed with possible retained products of conception and ectopic . Recommend follow-up with serial quantitative beta-hCG levels and ultrasound as clinically warranted. Reviewed, dictated and finalized at location O. PMENT OPERATION INSTRUCTOR IMPRESSION: 1. Mildly thickened endometrium with heterogeneous appearance and mildly increa sed vascularity. No gestational sac identified. Differential diagnosis includes very early intrauterine , failed with possible retained pro ducts of conception and ectopic . Recommend follow-up with serial celine titative beta-hCG levels and ultrasound as clinically warranted.
[2025-08-08 17:17] VITALS: BP 138/78; PULSE 96; RESP 16; TEMP 36.6; O2SAT 99
--- NOTE | 2025-08-08 17:19 | ED_ITS ---
HPI - General Chief complaint: Vaginal Bleeding <Catrina Driscoll PA-C - Last Filed: 08/10/25 14:34> Stated complaint: preg with vag bleeding <Catrina Driscoll PA-C - Last Filed: 08/10/25 14:34> Time Seen by Provider: 08/08/25 17:19 <Catrina Driscoll PA-C - Last Filed: 08/10/25 14:34> Focused HPI: This is a 40 year old female that presents to the ER for vaginal bleeding. Reports she is currently . LMP 06/23/25. Reports she started having bleeding two days ago. Reports some pelvic cramping. She has not had an US yet this . GENERAL: Well-appearing, well-nourished, and in no acute distress. HEAD: Normocephalic, atraumatic. CHEST: Clear to auscultation. ?No respiratory distress. HEART: Regular rate and rhythm.? NEURO: ?Alert and oriented x3. Patient screened in triage and initial orders placed.? ?Additional care and disposition to be based upon?diagnostic testing and treatment. <Catrina Driscoll PA-C - Last Filed: 08/10/25 14:34> History of Present Illness HPI Narrative: G8 P for presenting with vaginal bleeding in . Last menstrual period June 23. Spotting and passage of clots over last 2 days with crampy abdominal pain. Positive test 2 weeks ago. No other symptoms. <Cleveland Simental MD - Last Filed: 08/08/25 21:38> Related Data Home medications: Home Medications ?Medication ?Instructions ?Recorded ?Confirmed ?Last Taken ?Type losartan 25 mg tablet 25 mg PO DAILY 06/29/2312/0112/12/24 History <Catrina Driscoll PA-C - Last Filed: 08/10/25 14:34> Allergies/Adverse reactions: Allergies Allergy/AdvReac Type Severity Reaction Status Date / Time No Known Allergies Allergy Verified 08/08/25 17:21 <Catrina Driscoll PA-C - Last Filed: 08/10/25 14:34> Review of Systems 2 Review of Systems: All systems reviewed & are unremarkable except as noted in HPI and below <Catrina Driscoll PA-C - Last Filed: 08/10/25 14:34> [facility] Past Medical History Medical History: Medical History History of hypertension <Catrina Driscoll PA-C - Last Filed: 08/10/25 14:34> Exam 2 Narrative: APPEARANCE: No apparent distress. Head: atraumatic. EYES: EOMI, NOSE: Atraumatic NECK: Trachea midline RESPIRATORY: No increased rate of breathing CARDIOVASCULAR: RRR, ABDOMINAL: Non-distended soft nontender no guarding rebound Pelvic exam: Normal external genitalia, cervical os is closed with trace of bleeding MUSCULOSKELETAl: No obvious deformities NEURO: Alert. Moving 4/4 extremities SKIN:: Warm, dry. Normal color PSYCHIATRIC: Normal affect <Cleveland Simental MD - Last Filed: 08/08/25 21:38> Course Vital Signs Vital signs: Vital Signs Temperature 97.8 F 08/08/25 17:17 Pulse Rate 96 08/08/25 17:17 Respiratory Rate 16 08/08/25 17:17 Blood Pressure 138/78 08/08/25 17:17 Pulse Oximetry 99 08/08/25 17:17 Oxygen Delivery Room Air 08/08/25 17:17 Temperature 98.0 F 08/08/25 21:48 Pulse Rate 76 08/08/25 21:48 Respiratory Rate 18 08/08/25 21:48 Blood Pressure 142/83 H 08/08/25 19:23 Pulse Oximetry 100 08/08/25 21:48 Oxygen Delivery Room Air 08/08/25 19:15 <Catrina Driscoll PA-C - Last Filed: 08/10/25 14:34> Vital Signs Temperature 97.8 F 08/08/25 17:17 Pulse Rate 96 08/08/25 17:17 Respiratory Rate 16 08/08/25 17:17 Blood Pressure 138/78 08/08/25 17:17 Pulse Oximetry 99 08/08/25 17:17 Oxygen Delivery Room Air 08/08/25 17:17 Temperature 98.0 F 08/08/25 21:48 Pulse Rate 76 08/08/25 21:48 Respiratory Rate 18 08/08/25 21:48 Blood Pressure 142/83 H 08/08/25 19:23 Pulse Oximetry 100 08/08/25 21:48 Oxygen Delivery Room Air 08/08/25 19:15 <Cleveland Simental MD - Last Filed: 08/08/25 21:38> MDM - OB/Uterine Contractions MDM Narrative Medical decision making narrative: -Course: 40-year-old female presenting with vaginal bleeding in . HCG is only 23.15. Ultrasound did not show a intrauterine fetus. Blood type is B positive no RhoGAM was required. Pelvic exam showed a closed cervical os with some scant bleeding. Suspect patient has had a miscarriage of her the to follow-up with her OBGYN which she has appointment on Tuesday. Given return precautions for bleeding. -DDX includes but is not limited to: Miscarriage, ectopic, \ <Cleveland Simental MD - Last Filed: 08/08/25 21:38> Lab Data Result diagrams: 08/08/25 17:40 08/08/25 17:40 <Catrina Driscoll PA-C - Last Filed: 08/10/25 14:34> Labs: Lab Results 08/08/25 Range/Units 17:40 WBC 14.8 H (4.5-10.0) K/mm3 RBC 4.21 (4.2-5.4) M/mm3 Hgb 11.4 L (12.0-15.0) g/dL Hct 35.3 L (37.0-47.0) % MCV 83.8 (80-100) fl MCH 27.1 (26-34) pg MCHC 32.3 (32-36) g/dl RDW 14.3 (11.5-14.5) % Plt Count 350 (150-375) k/mm3 MPV 9.2 (7.4-10.4) fl Immature Gran % (Auto) 0.5 (0-0.5) % Neut % (Auto) 67.7 (45.5-73.1) % Lymph % (Auto) 25.9 (18.3-44.2) % [place] % (Auto) 4.1 (2.6-8.5) % Eos % (Auto) 1.5 (0-4.4) % Baso % (Auto) 0.3 (0.2-1.2) % Lymph # (Auto) 3.84 H (0.9-3.2) K/mm3 [place] # (Auto) 0.6 (0.1-0.6) K/mm3 Eos # (Auto) 0.2 (0-0.3) K/mm3 Baso # (Auto) 0.1 (0.0-0.1) K/mm3 Abs Immat Gran (auto) 0.07 H (0.00-0.031) K/mm3 Absolute Neuts (auto) 10.0 H (1.3-6.7) K/mm3 Absolute Nucleated RBC 0.000 (0.0-0.012) K/mm3 Nucleated RBC % 0.0 (0.0-0.2) % PT 13.8 (11.1-14.7) Seconds INR 1.0 APTT 26.1 (22.3-36.8) Seconds Sodium 137 (137-145) mmol/L Potassium 3.9 (3.4-5.0) mmol/L Chloride 105 (98-107) mmol/L Carbon Dioxide 26 (22-30) mmol/L Anion Gap 6 (4-12) mmol/L BUN 11 (7-17) mg/dL Creatinine 0.78 (0.7-1.0) mg/dL Estim Creat Clear Calc 108 ml/min Estimated GFR > 60 (59 - ) Glucose 94 (65-110) mg/dL Calcium 8.6 (8.4-10.2) mg/dL Total Bilirubin 0.3 (0.2-1.3) mg/dL AST 25 (14-36) U/L ALT 22 (6-35) U/L Alkaline Phosphatase 85 (38-126) U/L Total Protein 7.6 (6.3-8.2) g/dL Albumin 4.0 (3.5-5.1) g/dL Beta HCG, Quant 23.15 mIU/ML Blood Type B Positive Antibody Screen Negative Screen Not Reportable Baby's Blood Type Not Reportable Baby's DIVYA Not Reportable Doses of RhIg Required 0 <Catrina Driscoll PA-C - Last Filed: 08/10/25 14:34> Lab Results 08/08/25 Range/Units 17:40 WBC 14.8 H (4.5-10.0) K/mm3 RBC 4.21 (4.2-5.4) M/mm3 Hgb 11.4 L (12.0-15.0) g/dL Hct 35.3 L (37.0-47.0) % MCV 83.8 (80-100) fl MCH 27.1 (26-34) pg MCHC 32.3 (32-36) g/dl RDW 14.3 (11.5-14.5) % Plt Count 350 (150-375) k/mm3 MPV 9.2 (7.4-10.4) fl Immature Gran % (Auto) 0.5 (0-0.5) % Neut % (Auto) 67.7 (45.5-73.1) % Lymph % (Auto) 25.9 (18.3-44.2) % [place] % (Auto) 4.1 (2.6-8.5) % Eos % (Auto) 1.5 (0-4.4) % Baso % (Auto) 0.3 (0.2-1.2) % Lymph # (Auto) 3.84 H (0.9-3.2) K/mm3 [place] # (Auto) 0.6 (0.1-0.6) K/mm3 Eos # (Auto) 0.2 (0-0.3) K/mm3 Baso # (Auto) 0.1 (0.0-0.1) K/mm3 Abs Immat Gran (auto) 0.07 H (0.00-0.031) K/mm3 Absolute Neuts (auto) 10.0 H (1.3-6.7) K/mm3 Absolute Nucleated RBC 0.000 (0.0-0.012) K/mm3 Nucleated RBC % 0.0 (0.0-0.2) % PT 13.8 (11.1-14.7) Seconds INR 1.0 APTT 26.1 (22.3-36.8) Seconds Sodium 137 (137-145) mmol/L Potassium 3.9 (3.4-5.0) mmol/L Chloride 105 (98-107) mmol/L Carbon Dioxide 26 (22-30) mmol/L Anion Gap 6 (4-12) mmol/L BUN 11 (7-17) mg/dL Creatinine 0.78 (0.7-1.0) mg/dL Estim Creat Clear Calc 108 ml/min Estimated GFR > 60 (59 - ) Glucose 94 (65-110) mg/dL Calcium 8.6 (8.4-10.2) mg/dL Total Bilirubin 0.3 (0.2-1.3) mg/dL AST 25 (14-36) U/L ALT 22 (6-35) U/L Alkaline Phosphatase 85 (38-126) U/L Total Protein 7.6 (6.3-8.2) g/dL Albumin 4.0 (3.5-5.1) g/dL Beta HCG, Quant 23.15 mIU/ML Blood Type B Positive Antibody Screen Negative Screen Not Reportable Baby's Blood Type Not Reportable Baby's DIVYA Not Reportable Doses of RhIg Required 0 <Cleveland Simental MD - Last Filed: 08/08/25 21:38> Critical Care Time Critical Care Time Critical Care Time: No <Catrina Driscoll PA-C - Last Filed: 08/10/25 14:34> Discharge Plan Discharge Clinical Impression: Miscarriage <Catrina Driscoll PA-C - Last Filed: 08/10/25 14:34> Patient Disposition: Home <Catrina Driscoll PA-C - Last Filed: 08/10/25 14:34> Condition: Stable <Catrina Driscoll PA-C - Last Filed: 08/10/25 14:34> Instructions: Antibiotic Form, Miscarriage (ED) <Catrina Driscoll PA-C - Last Filed: 08/10/25 14:34> Additional Instructions: You were seen in the emergency for possible miscarriage. Please follow-up with your OBGYN appointment Tuesday for repeat hCG and further evaluation. If you develop significant bleeding of more than 1 pad per hour for 2 hours in a row please return to the ED for re-evaluation. <Catrina Driscoll PA-C - Last Filed: 08/10/25 14:34> Patient Language: Bulgarian <Cartina Driscoll PA-C - Last Filed: 08/10/25 14:34> Prescriptions: No Action losartan 25 mg tablet 25 mg PO DAILY omeprazole 10 mg capsule,delayed release(DR/EC) 10 mg PO DAILY Qty: 30 0RF cyclobenzaprine 5 mg tablet 5 mg PO TID PRN (Reason: muscle spasm) Qty: 10 0RF <Catrina Driscoll PA-C - Last Filed: 08/10/25 14:34> Follow-up/Referrals: PHYSICIAN NOT ON STAFF,NONSTAFF [Primary Care Provider] <Catrina Driscoll PA-C - Last Filed: 08/10/25 14:34>
[2025-08-08 17:51] LABS: Hematocrit 35.3 % (37.0-47.0); Hemoglobin 11.4 g/dL (12.0-15.0); Immature Granulocyte Percent A 0.5 % (0-0.5); Lymphocytes Absolute Auto 3.84 K/mm3 (0.9-3.2); Mean Corpuscular HGB Conc 32.3 g/dl (32-36); Mean Corpuscular Hemoglobin 27.1 pg (26-34); Mean Corpuscular Volume 83.8 fl (80-100); Nucleated Red Blood Cells Absolute Auto 0.000 K/mm3 (0.0-0.012); Nucleated Red Blood Cells Perc 0.0 % (0.0-0.2); Platelet Count Result 350 k/mm3 (150-375); Red Blood Count 4.21 M/mm3 (4.2-5.4); White Blood Count 14.8 K/mm3 (4.5-10.0)
[2025-08-08 17:59] LABS: Alanine Aminotransferase 22 U/L (6-35); Albumin Level 4.0 g/dL (3.5-5.1); Alkaline Phosphatase 85 U/L (38-126); Anion Gap 6 mmol/L (4-12); Aspartate Amino Transferase 25 U/L (14-36); Bilirubin,Total 0.3 mg/dL (0.2-1.3); Blood Urea Nitrogen 11 mg/dL (7-17); Calcium 8.6 mg/dL (8.4-10.2); Carbon Dioxide 26 mmol/L (22-30); Chloride 105 mmol/L (98-107); Estimated CRCL calculation 108 ml/min; Estimated Glomerular Filt Rate > 60; Glucose 94 mg/dL (65-110); Potassium 3.9 mmol/L (3.4-5.0); Sodium 137 mmol/L (137-145); Total Protein 7.6 g/dL (6.3-8.2)
[2025-08-08 18:04] LABS: INR 1.0; Prothrombin Time 13.8 Seconds (11.1-14.7)
[2025-08-08 18:05] LABS: Partial Thromboplastin Time 26.1 Seconds (22.3-36.8)
[2025-08-08 18:16] LABS: Beta HCG Quantitative 23.15 mIU/ML
[2025-08-08 19:15] VITALS: BP 134/72; PULSE 98; RESP 20; TEMP 36.7; O2SAT 100
[2025-08-08 19:20] VITALS: BP 143/77
[2025-08-08 19:22] VITALS: BP 141/84
[2025-08-08 19:23] VITALS: BP 142/83
--- OUTSIDE RECORDS SUMMARY | 2025-08-08 21:10 | XMS_ITS | Clinical Summary ---
Author Organization [facility] Address [address] [place] [address] Phone Care Team Providers Care Statistical Clerk Advertising Name Role Phone Unavailable Primary Care Provider Unavailabl e Medications No known medications Active Problems No known active problems Encounters Date Type Department Care Team Description 08/06/2025 External Device Data ST[facility] ABSTRACTION Provider, Abstract 07/31/2025 External Device Data [facility] ABSTRACTION Provider, Abstract 07/30/2025 External Device Data [facility] ABSTRACTION Provider, Abstract 07/23/2025 External Device Data [facility] ABSTRACTION Provider, Abstract 05/10/2025 Telephone [facility] [address] [place] [address] Miley Booker CGC Results (Genetic testing results) 05/09/2025 Telephone [facility] [address] [place] [address] Miley Booker CGC Missed Call 05/08/2025 External Device Data ST[facility] ABSTRACTION Provider, Abstract from Last 3 Months Family History Medical History Relation Name Comments No Known Problems Brother 1 No Known Problems Brother 2 Lung Cancer Brother 3 smoked No Known Problems Daughter Hypertension Father Pancreatic Cancer Father Breast Cancer Maternal Aunt 1 Heart defect Maternal Aunt 1 No Known Problems Maternal Aunt 2 Lung Cancer Maternal Aunt 3 smoked Lung Cancer Maternal Aunt 4 smoked No Known Problems Maternal Cousin x14 Breast Cancer Maternal Grandfather Breast Cancer Maternal Grandmother No Known Problems Maternal Uncle 1 Other Maternal Uncle 2 overdose Prostate Cancer Maternal Uncle 3 metastat ic No Known Problems Mother No Known Problems Niece/Nephew x12 No Known Problems Paternal Aunt 1 x2 Unknown Paternal Aunt 2 Unknown Paternal Aunt 3 No Known Problems Paternal Cousin many Unknown Paternal Grandfather No Known Problems Paternal Grandmother No Known Problems Paternal Uncle x5 No Known Problems Son 1 No Known Problems Son 2 No Known Problems Son 3 Relation Name Status Comments Brother 1 Alive Brother 2 Alive Brother 3 Alive Daughter Alive Father Maternal Aunt 1 Maternal Aunt 2 Alive Maternal Aunt 3 Alive Maternal Aunt 4 Maternal Cousin x14 Alive Maternal Grandfather Maternal Grandmother Maternal Uncle 1 Alive Maternal Uncle 2 Alive Maternal Uncle 3 Alive Mother Alive Niece/Nephew x12 Alive Paternal Aunt 1 x2 Alive Paternal Aunt 2 Paternal Aunt 3 Paternal Cousin many Alive Paternal Grandfather Paternal Grandmother Paternal Uncle x5 Alive Son 1 Alive Son 2 Alive Son 3 Alive Social History Tobacco Use Types Packs/Day Years Used Date Smoking Tobacco: Never Tobacco Cessation:Counseling Given: Not Answered Alcohol Use Standard Drinks/Week Comments Not Currently 0 (1 standard drink = 0.6 oz pur e alcohol) Comments Unknown Sex and Gender Information Value Date Recorded Sex Assigned at Not on file 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
--- OUTSIDE RECORDS SUMMARY | 2025-08-08 21:10 | XMS_ITS | Data Portability ---
Author Organization [facility] [place] [facility] Address [address] [place] [address] Care Team Providers Care Yarn Spinner Name Role Phone THUY GOMEZ Primary Care [...] By Organization Details Last Modified Time 03/24/2018 [id number] toenail fungus: care instructions [email or web address] Not available 03/24/2018 12:16:39 I explained to t he patient the diagnosis, prognosis, etiology and treatment options for onychomycosis including no treatment, oral and topical medications, Cutera laser therapy, periodic debridement, phenol matrixectomy for permanent nail removal, and temporary nail avulsion followed by use of topical antifungal medication. [email or web address] Not available 03/24/2018 12:15:57 Reason for Referral None Reported. Results Created Date Observation Date Name Description Value Unit Range Abnormal Flag Note LastModifiedBy Organization Detail LastModifiedTime Result Notes None recorded. Procedures Surgical History Date Name Laterality Status Provider Name and Address Organization Details Recorded Time 03/24/2018 [id number] Nail unit rickyy ARUN Plunkett DPM [address] [place] [address], [id number], [facility] 03/24/2018 12:15:29 Imaging Results None recorded. Procedure Notes None recorded. Medical Equipment None Reported. Allergies No known drug allergies Medications Not known to be on any medication Vitals Date Recorded Body height Body mass index (BMI) Body weight Provider Name and Address Organization Details Last Updated DateTime 03/24/2018 165.1 cm 46.6 kg/m2 654777.86 g Lilly Voss [facility] 03/24/2018 11:57:48 Social History Question Answer Notes LastModified by Minggl Details LastModified Time Tobacco Smoking Status Never Smoker Lilly coon [facility] 03/24/2018 11:58:12 Size Of Shoes 10 Information not available 03/24/2018 What Was The Date Of Your Most Recent Tobacco Screening? 03/24/2018 Information n ot available 04/25/2019 Sex: Unknown Functional Status Question Answer Note LastModified by Minggl Details LastModified Time What is your level of alcohol consumption? Occasional Information not available 03/24/2018 What is your exercise level? None Information [...] N Ulcers on Legs or Feet N HIV or AIDS N Coronary Artery Disease N Gout N Seizure Disorder N High Blood Pressure N Clot in Lung or Pulmonary Embolism N Menopause N Lung Condition N Phlebitis or Venous Blood Clot N Migraines Y Depression N Pacemaker N Anemia N Back Pain N Neurologic Disease N Sciatica N Heart Attack (RI) N Diabetes N Urinary Tract Infections N [...] Diagnosis SNOMED-CT Code Diagnosis ICD10 Code Diagnosis IMO Codes Diagnosis Note [id number] Lennox Plunkett DPM [place] [address] [place] [address] 03/24/2018 11:44:56 03/24/2018 12:11:07 Onychomycosis 375328648 B35.1 Dystrophia unguium 97781 [id number] L60.3 Health Concerns Section Related Observation LastModified by Organization Detai ls LastModified Time None Recorded Concern Status LastModified by Organization Details LastModified Time None Recorded Advance Directives Directive None Recorded Payers Insurance Date Sequence Insurance Name Policy Number Policy Shafer Covered Member ID Shafer Member ID Guarantor Name 04/25/2018 1 [facility] Kavon Mauricio [id number] Kavon Mauricio Notes Date Note Type Note Provider Name and Address Organization Details Recorded Time 03/24/2018 text/html Dry Skin / FungusReported by PatientTinea/ xerosis HPIFor location, patient reportsleft(l1). For quality, patient reportspainless. For severity, patient reportssevere. For duration, patient reports___ weeks. For onset/timing, (after geting pedi). STarted after a pedicure Lennox Plunkett DPM [address] [place], [address], [place] [facility] 03/24/2018 12:16:42 OBGyn Episode No OBEpisode recorded.
--- OUTSIDE RECORDS SUMMARY | 2025-08-08 21:10 | XMS_ITS | Clinical Summary ---
Author Organization [facility] Address [address] [place] [address] Care Team Providers Care Sheet Metal Duct Installer Name Role Phone Unavailable Primary Care Provider Unavailabl e Source Comments [facility],non-owned Affiliates and Associated Physician Practices is amultiple site organization consisting of ambulatory clinics and hospital sitesin [place], [place], [place] and [place]. This disclosure is being madepursuant to the Care Everywhere program and may not contain all information available regarding this patient. Last updated 18.[facility] Allergies No known active allergies Medications * Be aware that medications may not be up to date on this document. Alwaysverify current medications with the patient. penicillin v potassium (VEETIDS) 500 MG tablet Take 1 Tab by mouth every 6 hours. 28 Tab 0 01/13/2013 Active ondansetron (ZOFRAN) 4 MG tablet Take 1 Tab by mouth every 4 hours as needed for Nausea/Vomi ting. 10 Tab 0 01/13/2013 Active Throat Lozenges (CEPACOL) 10-4.5 MG LOZG by Mouth/Throa t route. 30 Lozenge 0 01/13/2013 Active metoclopramide (REGLAN) 10 MG tablet Take 1 Tab by mouth 3 times daily as needed for Nausea/Vomi ting (or headache). 10 Tab 0 03/07/2015 Active traMADol (ULTRAM) 50 MG tablet Take 1 Tab by mouth every 4 hours as needed for Pain. 20 Tab 0 03/07/2015 Active Active Problems Patient Care Coordination No te Formatting of this note migh t be different from the original. Referral to [facility] for home injections of 17-p. Per Rayna at [facility], pt is refusing 17-p injections. Last dose given 01/04/12. Please address at next appointment and call [facility] if pt agrees to continue. FMLA papers have been completed. Patient will pick them up on 04/27/12. A copy is in my desk drawer. Problem Noted Date Diagnosed Date Obesity 12/27/2011 History of delivery, currently 12/21/2011 Overview (04/03/2012): CL: 4.2cm on 02/04/12 Pt refuses to continue to receive 17P for history of labor Supervision of other high-risk 012 Overview (08/10/2015): Consult from [facility] for possible 17-OHP B+/I/-/-, NR H/H/Plt: 11.5/34.6/318 Gc/Ct: neg/neg Sickle Cell Screen: Negative GCT:129 GBS Positive Immunizations Immunization Administration Dates Next Due TDAP (7yrs+) 08/27/2009 Family History Medical History Relation Name Comments Diabetes Maternal Grandmother Hypertension Maternal Grandmother Relation Name Status Comments Brother 1 Alive Brother 2 Alive Brother 3 Alive Father Alive Maternal Grandmother Mother Alive Social History Tobacco Use Types Packs/Day Years Used Date Smoking Tobacco: Never Smokeless Tobacco: Never Alcohol Use Standard Drinks/Week Comments No 0 (1 standard drink = 0.6 oz pur e alcohol) Comments Unknown Sex and Gender Information Value Date Recorded Sex Assigned at Not on file 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 Gender Identity Not on file Sexual Orientation Not on file 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 Not on file Not on file Not on file Last Filed Vital Signs Vital Sign Reading Time Taken Comments Blood Pressure 130/80 03/07/2015 1:52 PM CDT Pulse 87 03/07/2015 1:52 PM CDT Temperature 37.1 C (98.8 F) 03/07/2015 10:18 AM CDT Respiratory Rate 22 03/07/2015 1:52 PM CDT Oxygen Saturation 98% 03/07/2015 1:52 PM CDT Inhaled Oxygen Concentration - - Weight 131.5 kg (290 lb) 03/07/2015 10:18 AM CDT Height 165.1 cm (5' 5) 03/07/2015 10:18 AM CDT Body Mass Index 48.26 03/07/2015 10:18 AM CDT Plan of Treatment Upcoming Encounters Date Type Department Care Team (Late st Contact Info) Description 08/28/2025 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 Appointment [facility] [address] [place] [address] 08/28/2025 11:15 AM DEEP FRYER ASSEMBLER Appointment [facility] [address] [place] [id number] Health Maintenance Due Date Last Done Comments LIPID TESTING 1983 MAMMOGRAM 1983 HIV SCREENING 1998 HEPATITIS C SCREENING 05/15/2001 HEPATITIS B VACCINE (1 of 3 - 19+ 3-dose series) 2002 HPV VACCINE (1 - 3-dose SCDM series) 2010 DTAP/TDAP/TD VACCINES (2 - T d or Tdap) 08/27/2019 08/27/2009 DEPRESSION SCREENING 10/03/2024 COVID-19 VACCINE (4 - 2024-2 6 season) 2025 10/08/2021, 02/17/2021, 01/19/2021 INFLUENZA VACCINE (#1) 2025 ZOSTER VACCINE (1 of 2) 2033 HIB VACCINE Aged Out No longer eligi ble based on patient's age to complete this topic MENINGOCOCCAL (Group B) VACCINE SHARED DECISION-MAKING Aged Out No longer eligible based on patient's age to complete this topic MENINGOCOCCAL GROUPS A/C/Y/W VACCINE Aged Out No longer eligible b ased on patient's age to complete this topic PNEUMOCOCCAL VACCINE Aged Out No long er eligible based on patient's age to complete this topic Advance Directives * FULL RESUSCITATION (Latest Code Status on File) Date Activated Date Inactivated Comments 04/14/2012 3:01 PM 04/16/2012 9:46 PM * FULL RESUSCITATION Date Activated Date Inactivated Comments 04/14/2012 3:00 PM 04/14/2012 3:01 PM * Full Code Date Activated Date Inactivated Comments 08/26/2009 12:44 PM 08/28/2009 5:21 AM
--- OUTSIDE RECORDS SUMMARY | 2025-08-08 21:10 | XMS_ITS | Data Portability ---
Author Organization [facility] [place] Address [address] [place] [address] Care Team Providers Care Nurse Auditor Name Role Phone MIHAI BANKS Primary Care Provider Assessment Encounter Date Assessment Date Assessment LastModified by Organization Details LastModified Time 04/18/2025 04/18/2025 Annual gynecological exam performed. Patient will come back in a year unless there are new symptoms. Not available 04/18/2025 16:07:50 Plan of Treatment Reminders Order Date Submit Date Provider Last Modified By Organization Details Last Modified Time Details Appointments None recorded. Lab hbcab (hepatitis B core Ab) igm, serum 2024 025 [facility] (Lab), [address], [place], [address], 5 19:26:24 HBsAg (hepatitis B surface Ag), serum 2024 025 [facility] (Lab), [address], [place], [address], 5 19:26:21 hepatitis C virus Ab, serum 2024 025 [facility] (Lab), [address], [place], [address], 5 19:26:22 HIV 1+2 AB + HIV 1 p24 Ag, qualitative immunoassay , serum 2024 025 [facility] (Lab), [address], [place], [address], 5 19:26:21 RPR (rapid plasma reagin), serum 2024 025 [facility] (Lab), [address], [place], [address], 5 19:26:24 pap, IG + HR HPV - HPV regardless but if HPV is positive need subtyping 16,18/45 add gc/ct/trich 2024 025 [facility] (Lab), [address], [place], [address], 5 19:26:24 beta-HCG, quantitativ e, serum or plasma 2024 025 [facility] (Lab), [address], [place], [address], 5 19:26:22 25-hydroxyv itamin D2 + 25-hydroxyv itamin D3, QN, serum or plasma 2024 025 [facility] (Lab), [address], [place], [address], 5 19:26:23 TSH, serum or plasma 2024 025 [facility] (Lab), [address], [place], [address], 5 19:26:22 T4, free, serum 2024 025 [facility] (Lab), [address] [place], [address], 5 19:26:23 free T3, quantitativ e, dialysis serum or plasma 2024 025 [facility] (Lab), [address] [place], [address], 5 19:26:21 thyroglobul in Ab, serum 2024 025 [facility] (Lab), [address] [place], [address], 5 19:26:23 Referral None recorded. Procedures None recorded. Surgeries None recorded. Imaging None recorded. Medication Orders None recorded. Patient TargetsNo targets recorded. Patient InstructionsNo instructions [...] 93 Autho rosalba anthony Provi kristan: Venita Gurrola, ALAN Colle cted: 06/29 1424 Order ing Locat ion: [place] [facility] Recei heath: 06/30 0151 First Scree n: Strut z, Willi am, CT Rescr een: Carol Da Silva, CT Speci men: Scree luma Pap - Image d, Cervi x STATE MENT OF ADEQU ACY: Satis facto ry for evalu ation Trans forma tion zone compo nent prese nt FINAL DIAGN OSIS: Negat gonzalez for Intra epith elial Markie smith or Marciano sanchez (NIL) Elect petar foy gema d by Carol Da Silva, CT on 2020 at 12:02 PM ----- [...] gilson and/o r histo rical findi ngs, furth er inves tigat ion is recom jannette d, as clini kevin warra nted. Not Available [facility] (Lab) [address], [place], [address], 07/03/2021 13:05:13 04/18/2004/18/2025 HIV 1/2 ANTIG EN/AN TIBOD Y, REFLE X CONFI RMATI ON HIV antigen/anti body Nonrea ctive nonrea ctive : Routi ne : ENDOC ERVIC AL/CE RVICA L : add gc/ct /tric h HIV-1 antig en and HIV-1 /HIV- 2 antib odies were not detec mariaelena. No labor atory evide nce of HIV infec tion. Not Available [facility] (Lab) [address], [place], [address], 04/22/2025 19:26:21 04/18/20 25 04/18/2025 HEPAT ITIS B SURFA CE ANTIG EN hepatitis B surface antigen Non-re active non-re active This assay was perfo rmed using [employer] n reage nts and test kits. Value s obtai deja with other assay metho ds or kits canno t be used inter partida eably . : Routi ne : ENDOC ERVIC AL/CE RVICA L : add gc/ct /tric h Not Available [facility] (Lab) [address], [place], [address], 04/22/2025 19:26:21 04/18/2004/18/2025 FREE T3 T3, free 2.49 pg/mL 2.00-4 .40 This assay is susce ptibl e to inter feren ce from high level s of bioti n which may false ly eleva te resul ts. Pleas e corre late with clini gilson findi ngs inclu ding TSH and FT4 resul ts. If clini kevin indic ated, Free T3 by Equil mandie Knutson sis LC/MS may be perfo rmed. : Routi ne : ENDOC ERVIC AL/CE RVICA L : add gc/ct /tric h Not Available [facility] (Lab) [address], [place], [address], 04/22/2025 19:26:21 04/18/2004/18/2025 BHCG, QUANT ITATI VE B-HCG 1.4 mIU/m L 0.0-4. 9 This assay was perfo rmed using [employer] n reage nts and test kits. Value s obtai deja with other assay metho ds or kits canno t be used inter partida eably . Refer ence Range s: Non-p regna nt, preme nopau moriah women : 0.0-4 .9 mIU/m L Postm enopa usal women : 0.0-7 .0 mIU/m L Loren l Pregn desiree: Gesta suzette l Age bHCG Conc. - mIU/m L 3 Weeks 5.8 - 71.7 4 Weeks 9.5 - 750 5 Weeks 217-7 138 6 Weeks 158 - 31,79 5 7 Weeks 3,697 - 162,5 63 8 Weeks 32,06 5 - 149,5 71 9 Weeks 63,80 3 - 151,4 10 10 Weeks 46,50 9 - 186,9 77 12 Weeks 27,83 2 - 210,6 12 14 Weeks 13,95 0 - 62,53 0 15 Weeks 12,03 9 - 70,97 1 16 Weeks 9,040 - 56,45 1 17 Weeks 8,175 - 55,86 8 18 Weeks 8,099 - 58,17 6 : Routi ne : ENDOC ERVIC AL/CE RVICA L : add gc/ct /tric h Not Available [facility] (Lab) [address] , [place], [address], 04/22/2025 19:26:22 04/18/20 25 04/18/2025 HEPAT ITIS C ANTIB DARRELL SCREE N, REFLE X TO CONFI RMATI ON hepatitis C antibody Non-re active non-re active Antib odies to HCV Not Detec mariaelena, does not exclu de the possi bilit y of expos ure to HCV. : Routi ne : ENDOC ERVIC AL/CE RVICA L : add gc/ct /tric h Not Available [facility] (Lab) [address] [place], [address], 04/22/2025 19:26:22 04/18/20 25 04/18/2025 TSH TSH 1.13 uIU/m L 0.30-5 .33 : Routi ne : ENDOC ERVIC AL/CE RVICA L : add gc/ct /tric h Not Available [facility] (Lab) [address], [place], [address], 04/22/2025 19:26:22 04/18/20 25 04/18/2025 T4 FREE T4, free 0.84 NG/dL 0.60-1 .40 This assay is susce ptibl e to inter maykel ce from high level s of bioti n which may false ly eleva te resul ts. Ni e ulises late with clini gilson findi ngs. : Routi ne : ENDOC ERVIC AL/CE RVICA L : add gc/ct /tric h Not Available [facility] (Lab) [address], [place], [address], 04/22/2025 19:26:23 04/18/20 25 04/18/2025 VITAM IN D, 25-OH (TOTA L D2/D3 ) vitamin D, 25-hydroxy, total 29.4 NG/mL 30.0-1 00.0 low : Routi ne : ENDOC ERVIC AL/CE RVICA L : add gc/ct /tric h Sugge stive of Defic iency : <20 ng/mL Sugge stive of Insuf ficie ncy: 20-29 ng/mL Sugge stive of Suffi cienc y: 30-10 0 ng/mL Sugge stive of Toxic ity: >150 ng/mL Not Available [facility] (Lab) [address], [place], [address], 04/22/2025 19:26:23 04/18/20 25 04/18/2025 THYRO ID ANTIB DARRELL PANEL thyroglobuli n antibody <1.0 IU/mL <=3.9 Not Available [facility] (Lab) [address], [place], [address], 04/22/2025 19:26:23 04/18/20 25 04/18/2025 THYRO ID ANTIB DARRELL PANEL thyroperoxid ase antibodies 8.2 IU/mL 0.0-9. 0 : Routi ne : ENDOC ERVIC AL/CE RVICA L : add gc/ct /tric h This assay was perfo rmed using [employer] Coul[employer] er reage nts and test kits. Value s obtai deja with other assay metho ds or kits canno t be used inter partida eably . Not Available [facility] (Lab) [address], [place], [address], 04/22/2025 19:26:23 04/18/20 25 04/18/2025 RPR SCREE N, REFLE X TITER /CONF IRMAT ION RPR qualitative Nonrea ctive nonrea ctive : Routi ne : ENDOC ERVIC AL/CE RVICA L : add gc/ct /tric h Not Available [facility] (Lab) [address], [place], [address], 04/22/2025 19:26:23 04/18/20 25 04/18/2025 HEPAT ITIS B CORE, IGM hepatitis B core IgM antibody Non-re active non-re active Antib odies to Hepat itis B Core IgM not detec mariaelena. Does not exclu de the possi bilit y of expos ure to or infec tion with HBV. Corre late with other Hepat itis B serol ogies . : Routi ne : ENDOC ERVIC AL/CE RVICA L : add gc/ct /tric h Not Available [facility] (Lab) [address], [place], [address], 04/22/2025 19:26:24 04/18/20 25 04/18/2025 IMAGE GUIDE D PAP AND HPV REGAR DLESS image guided Pap, HPV regardless of Pap result SEE RESULT S BELOW CASE REPOR T: Cytol ogy Gynec ologi gilson Repor t Case: [id number] Autho rosalba anthony Provi kristan: Anay Padgett, [employer] Colle cted: 04/18 1619 Order ing Locat ion: [place] [facility] [place] Recei heath: 04/19 0823 First Scree n: Rayna Bass Speci men: Scree luma Pap - Image d, Cervi x STATE MENT OF ADEQU ACY: Satis facto ry for evalu ation Trans forma tion zone compo nent prese nt ----- ----- ----- ----- ----- ----- ----- ----- ----- ----- ----- ----- ----- ----- ----- ----- ----- ---- FINAL DIAGN OSIS: Negat gonzalez for Intra epith elial Lesio n or Marciano sanchez (NIL) . Elect petar ribeiro d by Rayna Bass on 2024 at 1822 CDT ----- ----- ----- ----- ----- ----- ----- [...] ut diffe renti ation . COMME NT: This speci men was revie wed by [...] ent false negat gonzalez rate. Liqui d-bas ed sampl ing may decre ase, but will [...] gilson and/o r histo rical findi ngs, furth er inves tigat ion is recom jannette d, as clini kevin jones nted. Not Available [facility] (Lab) [address], [place], [address], 04/22/2025 19:26:24 04/18/20 25 04/18/2025 CT/GC AND TRICH OMONA S VAGIN HOA (RRNA ), THINP REP VIAL CT/GC and trichomonas vaginalis (rrna), thinprep SEE RESULT S BELOW negati ve CHLAM YDIA TRACH OMATI S, PCR: Negat gonzalez NEISS ERIA GONOR RHOEA E, PCR: Negat gonzalez TRICH OMONA S VAGIN HOA RIBOS OMAL RNA (RRNA ): Negat gonzalez Not Available [facility] (Lab) [address], [place], [address], 04/22/2025 19:26:25 Result Notes None recorded. 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 1 15:21:41 Problem Notes None recorded. Procedures Surgical History Date Name Laterality Status Provider Name and Address Organization Details Recorded Time 4 [facility] 16:04:42 1 Date of Last Pap Smear completed [facility] 04/18/2025 16:10:58 Imaging Results None recorded. Procedure Notes None recorded. Medical Equipment None Reported. Allergies No known drug allergies Medications Name Sig Start Date Stop Date Status Note LastModified by Organization Details LastModified Time omeprazol e 10 mg capsule,d elayed release TAKE 1 CAPSULE BY MOUTH DAILY active Not Available Not Available No t Available losartan 25 mg tablet TAKE 1 TABLET BY MOUTH EVERY DAY active Not Available Not Available No t Available Vitamin D2 1,250 mcg (50,000 unit) capsule take 1 capsule by oral route every week 06/24 completed Prescrib ed Sara e: No Locat ion: [facility] M odify By: raul tirado DateTime : 04/24/20 10:27:10 AM Not Available Not Available Not Available cyclobenz aprine 5 mg tablet TAKE 1 TABLET BY MOUTH THREE TIMES DAILY NEEDED FOR MUSCLE SPASM 04/18 completed Not Available Not Available Not Available Trulicity 0.75 mg/0.5 mL subcutane ous pen injector ADMINIST ER 0.75 MG UNDER THE SKIN EVERY WEEK FOR DIABETES 04/18 completed Not Available Not Available Not Available Bariatric Multivita mins 45 mg iron-800 mcg-120 mcg capsule active Not Available Not Available Not Available Bariatric Multivita mins active Not Available Not Available Not Available Vitals Date Recorded Body height Body mass index (BMI) Body weight Systolic And Diastolic Provider Name and Address Organization Details Last Updated DateTime 04/18/2025 162.56 cm 46.2 kg/m2 285137.35 g 114/80 mm[Hg] Herber [facility] 04/18/2025 16:09:43 Date Recorded Body height Body mass index (BMI) Body weight Systolic And Diastolic Provider Name and Address Organization Details Last Updated DateTime 06/29/2021 162.56 cm 52.4 kg/m2 428224.67 g 131/88 mm[Hg] Sylvia Beasley [facility] 06/29/2021 14:12:37 Social History Question Answer Notes LastModified by Organizat ion Details LastModified Time Tobacco Smoking Status Never Smoker Sylvia coon [facility] 06/24/2021 15:25:28 Do You Have An Advance Directive? No [email or web address] Information n ot available 04/18/2025 Are You Blind Or Do You Have Difficulty Seeing? No [email or web address] Information n ot available 04/18/2025 In The 14 Days Before Symptom Onset, Have You Had Close Contact With A Laboratory-confirm ed COVID-19 While That Case Was Ill? No [email or web address] Information n ot available 04/18/2025 In The 14 Days Before Symptom Onset, Have You Had Close Contact With A Person Who Is Under Investigation For COVID-19 While That Person Was Ill? No [email or web address] Information not available 04/18/2025 Have You Been To An Area Known To Be High Risk For COVID-19? No Information not available 04/18/2025 Are You Deaf Or Do You Have Serious Difficulty Hearing? No Information not available 04/18/2025 What Type Of Diet Are You Following? REGULAR [email or web address] Information n ot available 04/18/2025 What Is The Highest Grade Or Level Of School You Have Completed Or The Highest Degree You Have Received? [id number] Information not available 04/18/2025 Are There Any Guns Present In Your Home? No [email or web address] Information not available 04/18/2025 Do You Use Protection During Sex? No [email or web address] Information not available 04/18/2025 Do You Use Your Seat Belt Or Car Seat Routinely? Yes Information not available 04/18/2025 Do You Have Smoke And Carbon Monoxide Detectors In Your Home? Yes Information not available 04/18/2025 How Much Tobacco Do You Smoke? No [email or web address] Information not available 04/18/2025 Do You Use Sunscreen Routinely? No [email or web address] Information not available 04/18/2025 Have You Used IV Drugs? No [email or web address] Information not available 04/18/2025 Sex: Unknown Functional Status Question Answer Note LastModified by Organizat ion Details LastModified Time Do you use any illicit or recreational drugs? No [email or web address] Information not available 04/18/2025 What is your level of alcohol consumption? None [email or web address] Information not available 04/18/2025 Are you able to walk independently without assistance or assistive devices? YESWOREST [email or web address] Information not available 04/18/2025 What is your occupation? Unemployed [email or web address] Information not available 04/18/2025 What is your exercise level? Moderate Information not available 04/18/2025 Mental Status Question Answer Note LastModified by Organization D etails LastModified Time Do you feel stressed (tense, restless, nervous, or anxious, or unable to sleep at night)? [id number] [email or web address] Information not available 04/18/2025 Family History Relationship Description Onset Age of this Age Resolved Age Notes LastModified by Organization Details LastModified Time Mother Hypertensive disorder Not available 2020 15:23:34 Mother Malignant neoplasm of kidney [email or web address] Not available 2024 15:43:36 Maternal Aunt Malignant neoplasm of lung [email or web address] Not available 2020 14:14:05 Maternal Uncle Carcinoma of prostate Not available 2024 15:43:36 Medical History Condition Response Allergies (Food, seasonal, [...] N Heart Disease N Pre-Eclampsia N Hypertension Y Osteoporosis N Thrombophilias N Gynecological History Statement/Question Response Abnormal Pap N Date of Last Mammogram Flow Moderate Date of LMP 01/05/2025 N Was last menstrual period normal Y STIs/STDs N HPV Vaccine N Duration of Flow (days) 5 Current Control Method None Are cycles usually normal N Date of Last Colonoscopy Sexually Active? Y Menses Monthly N Date of DEXA bone scan Age of first menstrual cycle 10 Date of Last Pap Smear 06/29/2021 Sexual Problems? N Desired Control Method None LMP Approximate N Obstetrics History GPAL:G 7 P 4 0 3 4 Type Value Full Term 4 Induced 1 Spontaneous 2 Living 4 Total 7 Past Encounters Encounter ID Performer Location Encounter Start Date Encounter Closed Date Diagnosis/Indication Diagnosis SNOMED-CT Code Diagnosis ICD10 Code Diagnosis IMO Codes Diagnosis Note [id number] Venitajason Toussaint [facility] [place] [address] [address] 06/29/2021 14:01:07 06/29/2021 14:46:23 Gynecologic examination 39445689 Z01.419 Z11.51 Take Calcium with Vitamin D [...] paper copy of today's plan if desired. [id number] KHUSHBOO Vazquez [place] [address] [address] 04/18/2025 15:43:02 04/18/2025 17:10:12 Gynecologic examination 40194102 Z01.388 [id number] WWEBC - DeclinedPa p - done todaySTI screen - gc/ct/tric h testing added to papHIV/Hep B&C/Syphil is testing ordered per pt requestMam mogram - UTD/PCPCol on cancer screening - n/aRoutine labs - UTD/PCPRTC in 1 yr or sooner if needed Suggested Calcium with Vitamin D daily. Patient advised to get an annual flu shot in the fall and she could obtain at local pharmacy. Also to obtain TDap vaccinatio n if you have not had one in the last 10 years. Recommend yearly mammograms . Encouraged monthly self breast exams. Encourage safe sexual practices, to use condoms and limit partners if not already in a monogamous relationsh ip. Engage in regular exercise. Avoid tobacco and illicit drugs. This lifestyle behavior pattern will lead to less health conditions and longer life span. If BMI greater than 25 dietary consult advised. All questions have been answered. Venereal d isease screening 412369593 Z11.3 76752 Adult heal th examination 210420324 Z00.00 [id number] labs ordered per pt request History of procedure 416 424405 Z98.890 [id number] [facility] ordered d/t recent h/o EAB Sexually t ransmitted infectious disease 7057786 A64 Lesion of ovary 82416727 4 N83.9 [id number] Records request for pelvic u/s done at [facility] ce reviewed will reach out to pt with recommenda tions Time spent in visit is a total of 30 mins with at least 50% of visit consisting of counseling and review of plan of care. Health Concerns Section Related Observation LastModified by Organization Detai ls LastModified Time None Recorded Concern Status LastModified by Organization Details LastModified Time None Recorded Advance Directives Directive N: Payers Insurance Date Sequence Insurance Name Policy Number Policy Shafer Covered Member ID Shafer Member ID Guarantor Name 04/15/2025 1 *SELF PAY* Alexandria Mauricio 04/18/2025 1 [facility] - DOS ON OR AFTER 21 (MEDICAID REPLACEMENT - HMO) Kavon Mauricio [id number] Kavon Mauricio Notes Date Note Type Note Provider Name and Address Organization Details Recorded Time 1 text/html Annual GYNReported by PatientGenitourinary symptomsFor menstrual cycle, patient reportsnormal menses(usually monthly but will occasionally skip a month.). For urinary symptoms, patient reportsno hematuriaandno incontinence. For vulva, patient reportsno genital lesion. For vagina, patient reportsnormal vaginal discharge.Breast symptomsFor breast, patient reportsno breast pain,no breast lump, andno nipple discharge.Endocrine symptomsFor sexual complaints, patient reportsno sexual complaints,no pain during intercourse, andnormal libido. For menopausal symptoms, patient reportsno menopausal symptomsandnormal vaginal lubrication.Psychological symptomsFor psychological symptoms, patient reportsno depression,no anxiety, andno pmdd. Venita coon, [facility] 06/29/2021 14:34:02 5 text/html Annual GYNReported by PatientGenitourinary symptomsFor menstrual cycle, patient reportsnormal menses. For urinary symptoms, patient reportsno hematuriaandno incontinence. For vulva, patient reportsno genital lesion. For vagina, patient reportsnormal vaginal discharge.Breast symptomsFor breast, patient reportsno breast pain,no breast lump, andno nipple discharge.Endocrine symptomsFor sexual complaints, patient reportsno sexual complaints,no pain during intercourse, andnormal libido. For menopausal symptoms, patient reportsno menopausal symptomsandnormal vaginal lubrication.Psychological symptomsFor psychological symptoms, patient reportsno depression,no anxiety, andno pmdd.Preventative measuresFor preventive measures, patient reportsencourage self breast examination,encourage regular exercise,encourage no tobacco use, andencourage regular mammograms starting age 40.41yo WWElast pap 2020 wnlno h/o abnormal papsmammogram UTD 12/2024 h/o EAB (medicated) 03/2025. Went to [facility] a few weeks after d/t continued bleeding. Had a pelvic u/s and was told all normal besides calcification's on ovaries and told to f/u with patent clerk. She is currently having no bleeding or pain. Bleeding stopped about 2 weeks ago. would like thyroid panel and vitamin D testing today (other adult health labs are UTD with PCP) KHUSHBOO Vazquez [address], [place], [address], [place] [facility] 04/18/2025 17:09:54 OBGyn Episode Ob Episode Information Episode Created Date Number of Fetuses Patient Bloodtype Patient rh Status Prepregnancy Weight lbs Domestic Partner Domestic Partner Phone Father Name Outpatient Scheduler Status 06/24/20 21 1 CLOSED Fetus Data First Name Last Name Admitted to NICU Weight (g) Sex Living Outcome Pediatric Complications Fetus ID Race Codes Race Delivery Type M [id number] Vaginal Delivery Aaron Calculation Initial Aaron Date [...] Domestic Partner Domestic Partner Phone Father Name Outpatient Scheduler Status 06/24/20 21 1 DELETED Aaron Calculation [...] Domestic Partner Domestic Partner Phone Father Name Outpatient Scheduler Status 06/24/20 21 1 CLOSED Fetus Data First Name Last Name Admitted to NICU Weight (g) Sex Living Outcome Pediatric Complications Fetus ID Race Codes Race Delivery Type M Full Term 12802 Vaginal Delivery Aaron Calculation Initial Aaron Date [...] Domestic Partner Domestic Partner Phone Father Name Outpatient Scheduler Status 06/24/20 21 1 CLOSED Fetus Data First Name Last Name Admitted to NICU Weight (g) Sex Living Outcome Pediatric Complications Fetus ID Race Codes Race Delivery Type F Full Term [id number] Vaginal Delivery Aaron Calculation Initial Aaron Date [...] Domestic Partner Domestic Partner Phone Father Name Outpatient Scheduler Status 06/24/20 21 1 CLOSED Fetus Data First Name Last Name Admitted to NICU Weight (g) Sex Living Outcome Pediatric Complications Fetus ID Race Codes Race Delivery Type M [id number] Vaginal Delivery Aaron Calculation Initial Aaron Date [...] Domestic Partner Domestic Partner Phone Father Name Outpatient Scheduler Status 06/24/20 21 1 CLOSED Fetus Data First Name Last Name Admitted to NICU Weight (g) Sex Living Outcome Pediatric Complications Fetus ID Race Codes Race Delivery Type , Spontane ous 77993 Aaron Calculation Initial Aaron Date Initial Exam [...] Domestic Partner Domestic Partner Phone Father Name Outpatient Scheduler Status 04/18/20 25 1 CLOSED Fetus Data First Name Last Name Admitted to NICU Weight (g) Sex Living Outcome Pediatric Complications Fetus ID Race Codes Race Delivery Type , Induced [id number] Aaron Calculation Initial Aaron Date Initial Exam [...] Complications Tubal Sterilization Discharge Date Comments 5 Discharge Information Feeding Method Contraceptive Method Maternal HG B and HCT Levels
--- OUTSIDE RECORDS SUMMARY | 2025-08-08 21:10 | XMS_ITS | Encounter Summary ---
Author Organization [facility] Address 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
--- OUTSIDE RECORDS SUMMARY | 2025-08-08 21:10 | XMS_ITS | Clinical Summary ---
Author Organization [facility] Address [address] [place] [address] Phone Care Team Providers Care Rivet Tester Name Role Phone Bert Blandon MD Primary Care Provider [phone] Allergies No known active allergies Medications atorvastatin (LIPITOR) 40 MG Tablet TAKE 1 TABLET BY MOUTH EVERY DAY NEEDED FOR HLD Active losartan (COZAAR) 25 MG Tablet Take 12.5 mg by mouth daily. Active spironolactone (ALDACTONE) 50 MG Tablet Take 50 mg by mouth daily. 5 Active Trulicity 1.5 MG/0.5ML Solution Auto-injector ADMINISTER 1.5 MG UNDER THE SKIN 1 TIME A WEEK Active Multiple Vitamins-Minerals (BARIATRIC MULTIVITAMINS PO) Take by mouth. Active Active Problems Problem Noted Date Diagnosed Date Leukocytosis 07/29/2025 Encounters Date Type Department Care Team Description 07/29/2025 7:40 AM CDT Initial Consult [facility] [address] [place] [address] Rosalba Ramirez March, Leukocytosis, unspecified type (Primary Dx) Discharge Disposition: Discharged to home or Selfcare 07/29/2025 Travel from Last 3 Months Family History Medical History Relation Name Comments Cancer Maternal Grandmother Diabetes Maternal Grandmother Hypertension Maternal Grandmother Cancer Mother Hypertension Mother Relation Name Status Comments Maternal Grandmother Mother Social History Tobacco Use Types Packs/Day Years Used Date Smoking Tobacco: Never Smokeless Tobacco: Never Tobacco Cessation:Counseling Given: Not Answered Alcohol Use Standard Drinks/Week Comments Yes 0 (1 standard drink = 0.6 oz pur e alcohol) occasionally Comments No Sex and Gender Information Value Date Recorded Sex Assigned at Not on file Legal Sex Female 1:44 PM CDT Gender Identity Not on file Sexual Orientation Not on file Last Filed Vital Signs Vital Sign Reading Time Taken Comments Blood Pressure 107/77 07/29/2025 7:59 AM CDT Pulse 98 07/29/2025 7:59 AM CDT Temperature 36.6 C (97.8 F) 07/29/2025 7:59 AM CDT Respiratory Rate 18 07/29/2025 7:59 AM CDT Oxygen Saturation 96% 07/29/2025 7:59 AM CDT Inhaled Oxygen Concentration - - Weight 124 kg (273 lb 4.8 oz) 07/29/2025 7:59 AM CDT Height 165.1 cm (5' 5) 07/29/2025 7:59 AM CDT Body Mass Index 45.48 07/29/2025 7:59 AM CDT Plan of Treatment Upcoming Encounters Date Type Department Care Team (Late st Contact Info) Description 08/12/2025 7:40 AM 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 [facility] [address] [place] [address] Rosalba Ramirez March, PAC [address] [place] [address] Discharge Disposition: Discharged to home or Selfcare 08/26/2025 7:40 AM [employer] CON[employer] LABORER Office [facility] [address] [place] [address] Rosalba Ramirez March, PAC [address] [place] [address] Discharge Disposition: Discharged to home or Selfcare Health Maintenance Due Date Last Done Comments Mammogram 1983 Hepatitis B Immunization (1 of 3 - 19+ 3-dose series) 2002 Pap Smear 2004 Human Papillomavirus (HPV) Immunization (1 - 3-dose SCDM series) 2010 Cervical Cancer Screening (CCS) 2013 HPV/Cotest 2013 Discussion re Starting/Frequency of Mammograms 2023 Influenza Immunization (#1) 2025 SARS-COV-2 Immunization ( season) 2025 10/08/2021, 02/17/2021, 01/19/2021 Respiratory Syncytial Virus (RSV) Immunization (Adult) (1 - 1-dose 75+ series) 2058 TdaP Immunization Completed 06/27/2024, 08/27/2009 Hepatitis C Virus (HCV) Screening Completed 04/18/2025 Meningococcal Immunization (ACWY) Aged Out No longer eligible b ased on patient's age to complete this topic Pneumococcal Immunization Combined Aged Out No longer eligible b ased on patient's age to complete this topic Rotavirus Immunization Aged Out No lo nger eligible based on patient's age to complete this topic Procedures Procedure Name Priority Date/Time Associated Diagnosis Comments FAMILY MEDICINE CONSULT 06/21/2025 12:00 AM CDT LIPID PANEL 2025 12:00 AM CDT HEMOGLOBIN, A1C 2025 12:00 AM CDT CMP (COMPREHENSIVE METABOLIC PANEL) 2025 12:00 AM CDT COMPLETE BLOOD COUNT (CBC) WITH DIFF 2025 12:00 AM CDT from Last 3 Months Results * FAMILY MEDICINE CONSULT (06/21/2025 12:00 AM CDT) 06/21/2025 us Provider Scan GENERIC SCAN ORDERS CONSULT Lorelei spears Result SCAN * LIPID PANEL (2025 12:00 AM CDT) CHOLESTEROL 200 SCAN HDL CHOLESTEROL 49 SCAN LDL 142 SCAN 2025 us Provider Scan CHEMISTRY ORDERABLES Final Resul t SCAN * HEMOGLOBIN, A1C (2025 12:00 AM CDT) HGB-A1C 5.7 SCAN 2025 us Provider Scan CHEMISTRY ORDERABLES Final Resul t SCAN * CMP (COMPREHENSIVE METABOLIC PANEL) (2025 12:00 AM CDT) 2025 us Provider Scan CHEMISTRY ORDERABLES Final Resul t SCAN * COMPLETE BLOOD COUNT (CBC) WITH DIFF (2025 12:00 AM CDT) 2025 us Provider Scan HEMATOLOGY ORDERABLES Final Resu lt Performing Organization Address City/State/[facility] Co de Phone Number SCAN from Last 3 Months Insurance MEDICAID [employer] Care Teams Rivet Tester Relationship Specialty Start Date End Date Bert Blandon MD [address] [place] [address] PCP - General Family Medicine 07/29/25
--- OUTSIDE RECORDS SUMMARY | 2025-08-08 21:10 | XMS_ITS | Clinical Summary ---
Author Organization [facility] Address [facility] [place] [address] Care Team Providers Care Electrical/Instrument Technician Name Role Phone Jade Damico MD Primary Care Provider Allergies No known active allergies Medications -refk -Lmfolate-algal 27 mg iron-1.13 mg-581.92 mg capsule Take by mouth Active losartan (COZAAR) 25 mg tabletIndicatio ns:Encounter for medication refill Take 1 tablet (25 mg total) by mouth daily 30 tablet 5 Active spironolactone (ALDACTONE) 100 mg tablet TAKE 1 TABLET BY MOUTH EVERY DAY DIRECTED FOR 30 DAYS FOR PCOS 5 Active Trulicity 0.75 mg/0.5 mL pen injector ADMINISTER 0.75 MG UNDER THE SKIN EVERY WEEK FOR DIABETES 5 Active Active Problems Problem Noted Date Diagnosed Date Weight gain 04/23/2025 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 Assessment & [...] 03/31/2023 Assessment & Plan (12/01/2023 11:08 AM EXPORT FREIGHT SPECIALIST): Continue to advance diet as laid out [...] Encounters Date Type Department Care Team Description 06/06/2025 2:15 PM CDT Office Visit [facility] at [address] [address] Leonora Haider NP Acute non-recurrent maxillary sinusitis (Primary Dx); Nasopharyngitis acute 05/10/2025 11:00 AM CDT - 05/10/2025 11:59 PM CDT Hospital Encounter [facility] Nutrition and Diabetic Education [address] [facility] [id number] [place] [address] Celestine, Alona Acharya RD Discharge Disposition: Discharge to home or self care 05/10/2025 Orders Only [facility] [address] [facility] [address] [place] [id number] Astrid Adkins NP Morbid obesity (HCC) (Primary Dx); Weight gain from Last 3 Months Surgical History Surgery [...] on file Legal Sex Female 7:57 AM EXPORT FREIGHT SPECIALIST Gender Identity Not on file Sexual Orientation Not on file Last Filed Vital Signs Vital Sign Reading Time Taken Comments Blood Pressure 122/80 06/06/2025 2:13 PM CDT Pulse 97 06/06/2025 2:13 PM CDT Temperature 36.8 C (98.3 F) 06/06/2025 2:13 PM CDT Respiratory Rate 20 06/06/2025 2:13 PM CDT Oxygen Saturation 98% 06/06/2025 2:13 PM CDT Inhaled Oxygen Concentration - - Weight 122.5 kg (270 lb) 06/06/2025 2:13 PM CDT Height 165.1 cm (5' 5) 05/10/2025 3:17 PM CDT Body Mass Index 44.93 05/10/2025 3:17 PM CDT Plan of Treatment Health Maintenance Due Date Last Done Comments Breast Cancer Screening-Mammogram 1983 Cervical Cancer Screening 1983 Hepatitis C Screening 1983 Varicella Vaccines (1 of 2 - 13+ 2-dose series) 1996 Hepatitis B Screening 2001 Regular Well Visit/Exam 18-64 2001 HPV Vaccines (1 - 3-dose SCD M series) 2010 DTaP/Tdap/Td Vaccine (2 - Td or Tdap) 08/27/2019 08/27/2009 Depression Screening 10/14/2024 10/14/2023 Covid-19 Vaccine (4 - 2024-2 6 season) 2025 10/08/2021, 02/17/2021, 01/19/2021 Influenza Vaccine (#1) 2025 Pneumococcal vaccine <65 Aged Out No longer eligible based on patient's age to complete this topic Procedures Procedure Name Priority Date/Time Associated Diagnosis Comments POC INFLUENZA A/B, COVID-19 ANTIGEN Routine 06/06/2025 2:40 PM CDT Nasopharyngitis acute POCT RAPID STREP Routine 06/06/2025 2:31 PM CDT Nasopharyngitis acute from Last 3 Months Results * POC Influenza A/B, COVID-19 antigen (06/06/2025 2:40 PM CDT) Influenza A Ag, POC Negative Negative [facility] Influenza B Ag, POC Negative Negative [facility] COVID-19 Ag POC Presumptive Negative Presumptive Negative, Invalid [facility] Nasal 06/06/2025 2:40 PM CDT us Leonora Haider NP POINT OF CARE TEST ORDERABLES Final Result [facility] [address] [place] [address] * POCT rapid strep A (06/06/2025 2:31 PM CDT) Rapid Strep A, POC Negative Negative Swab 06/06/2025 2:31 PM CDT us Leonora Haider NP POINT OF CARE TEST ORDERABLES Final Result from Last 3 Months Insurance [facility] Advance Directives For more information, please contact: [phone] * Full Code (Latest Code Status on File) Date Activated Date Inactivated Comments 11/23/2023 12:38 PM 11/24/2023 5:17 PM * Full Code Date Activated Date Inactivated Comments 07/12/2023 11:58 AM 07/12/2023 6:36 PM * Full Code Date Activated Date Inactivated Comments 07/12/2023 11:58 AM 07/12/2023 11:58 AM Care Teams Electrical/Instrument Technician Relationship Specialty Start Date End Date Jade Damico MD [address] [place] [address] PCP - General Obstetrics and Gynecology 03/31/23
[2025-08-08 21:48] VITALS: PULSE 76; RESP 18; TEMP 36.7; O2SAT 100
== END 2025-08-08 21:49 | disposition home or self-care (01) ==
PROVIDERS: Physician Assistant; Emergency Provider Emergency Medicine
DX: O03.9 Complete or unspecified spontaneous abortion without complication (principal); I10 Essential (primary) hypertension
CPT/HCPCS: 36415; 76801; 80053; 84702; 85025; 85461; 85610; 85730; 86850; 86900; 86901; 99284